=== PATIENT | male | born 1930 | race Caucasian/White ===

== ENCOUNTER 2017-05-12 19:02 | Emergency (ER) | payer MEDICARE ==
[~2017-05-12] VITALS: Ht 170.2 cm; Wt 65.8 kg
[~2017-05-12 19:02] MED LIST: ACET325T9 PO; ASPI-630 PO; ATOR10TA PO; BUPR100T6 PO; CALC-98 PO; DONE10TA61 PO; DOXY25TA42 PO; FIBER CAPSULE; MULT-658 PO; OMEG1CAP38 PO; SERT100T8 PO
--- NOTE | 2017-05-12 19:29 | PHYS DOC ---
Past History Past Medical History: Dementia Past Surgical History: Tonsillectomy Smoking: Quit Greater Than 1 Year Alcohol Use: None Drug Use: None Adult General Chief Complaint Chief Complaint: WEAKNESS/GENERALIZED HPI HPI Patient is a 86 year old male who presents to the emergency department for evaluation of generalized weakness and shaking. Symptoms started approximately 1 hour prior to arrival. The patient has history of dementia and is unable to provide coherent history. Patient denies any complaints at this time. Patient's family noted that the patient started having what appeared to be shaking chills and appeared very weak. Symptoms appeared to start suddenly today. No reports of previous illness. Patient has not been having any cough or family. Family concerned the patient may be showing symptoms concerning for a possible infection. Review of Systems Review of Systems Caveat: Patient poor historian with history of dementia, denies any complaints Constitutional: Denies fever or chills [] Eyes: Denies change in visual acuity, redness, or eye pain [] HENT: Denies nasal congestion or sore throat [] Respiratory: Denies cough or shortness of breath [] Cardiovascular: Denies chest pain or edema [] GI: Denies abdominal pain, nausea, vomiting, bloody stools or diarrhea [] : Denies dysuria or hematuria [] Musculoskeletal: Denies back pain or joint pain [] Integument: Denies rash or skin lesions [] Neurologic: Denies headache, focal weakness or sensory changes [] Allergies Allergies Allergies Coded Allergies Type Severity Reaction Last Updated Verified Penicillins Allergy Intermediate extremity swelling 04/25/14 Yes Physical Exam Physical Exam Constitutional: Alert, febrile, no acute distress. [] HENT: Normocephalic, atraumatic, bilateral external ears normal, oropharynx dry , no oral exudates, nose normal. [] Eyes: PERRLA, EOMI, conjunctiva normal, no discharge. [] Neck: Normal range of motion, no tenderness, supple, no stridor. [] Cardiovascular: Tachycardia, regular rhythm, no murmur [] Lungs & Thorax: Mildly restricted air movement bilaterally, no audible rales or wheezes [] Abdomen: Bowel sounds normal, soft, no tenderness, no masses, no pulsatile masses. [] Skin: Warm, dry, no erythema, no rash. [] Back: No tenderness, no CVA tenderness. [] Extremities: No tenderness, no cyanosis, no clubbing, ROM intact, no edema. [] Neurologic: Alert, oriented to person only, normal motor function, normal sensory function, no focal deficits noted. [] Current Patient Data Vital Signs Vital Signs Date Time Temp Pulse Resp B/P (MAP) Pulse Ox O2 Delivery O2 Flow Rate FiO2 05/12/17 20:39 82 20 156/85 (108) 94 Room Air 05/12/17 19:03 101.0 Lab Results Laboratory Tests Test 05/12/17 19:18 Glucose (Fingerstick) 107 mg/dL (70-99) H EKG EKG Interpreted by me: Heart rate 88, sinus rhythm, leftward axis, no acute ST/T- wave abnormalities present [] Radiology/Procedures Radiology/Procedures One view AP chest x-ray interpreted by me: No infiltrate, no effusions, normal cardiac silhouette [] Course & Med Decision Making Course & Med Decision Making Pertinent Labs and Imaging studies reviewed. (See chart for details) Patient was found have evidence of urinary tract infection on patient's workup. Patient started on IV Rocephin in the emergency department. Spoke with the patient's family regarding inpatient versus outpatient treatment. The family states that they would like to take the patient home for outpatient treatment at this time. The patient's lactic acid level is normal and vital signs are stable. I do not feel it unreasonable to try outpatient treatment for this patient. Patient will continue on Vantin for outpatient treatment. I did recommend that the patient follow-up in one to 2 days with his primary doctor for reevaluation and return to the emergency department for any worsening symptoms. Patient's family voiced understanding and in agreement with treatment plan. Dragon Disclaimer Dragon Disclaimer This chart was dictated in whole or in part using Voice Recognition software in a busy, high-work load, and often noisy Emergency Department environment. It may contain unintended and wholly unrecognized errors or omissions. Departure Departure: Impression: Primary Impression: Urinary tract infection Additional Impression: Dementia Disposition: 01 HOME, SELF-CARE Condition: IMPROVED Referrals: DEDE ESPINOZA APRN (PCP) Patient Instructions: Urinary Tract Infection Additional Instructions: Follow-up with your primary doctor in 1-2 days for reevaluation. Return to the emergency department for any worsening symptoms. Scripts Cefpodoxime Proxetil (CEFPODOXIME PROXETIL) 200 Mg Tablet 1 TAB PO BID, #14 TAB Prov: RASHAWN MARROQUIN MD 05/12/17 Problem Qualifiers Primary Impression: Urinary tract infection Urinary tract infection type: site unspecified Hematuria presence: without hematuria Qualified Codes: N39.0 - Urinary tract infection, site not specified Additional Impression: Dementia Dementia type: Alzheimer's disease Alzheimer's disease onset: unspecified onset Dementia behavioral disturbance: without behavioral disturbance Qualified Codes: G30.9 - Alzheimer's disease, unspecified; F02.80 - Dementia in other diseases classified elsewhere without behavioral disturbance RASHAWN MARROQUIN MD May 12, 2017 19:29
[2017-05-12] MEDS ORDERED: IV NORMAL SALINE 1,000ML 1,000 ML IV SCH (19:30)
[2017-05-12 19:42] LABS: BASO # 0.1 x10^3/uL (0.0-0.2); BASO % 0 % (0-3); EOS # 0.2 x10^3/uL (0.0-0.7); EOS % 2 % (0-3); HEMATOCRIT 40.6 % (39.0-53.0); HEMOGLOBIN 13.7 g/dL (13.0-17.5); LYMPH % 7 % (24-48); MEAN CORPUSCULAR HEMOGLOBIN 31 pg (25-35); MEAN CORPUSCULAR HGB CONC 34 g/dL (31-37); MEAN CORPUSCULAR VOLUME 92 fL (79-100); MONO # 0.8 x10^3/uL (0.0-1.1); MONO % 5 % (0-9); NEUT % 86 % (31-73); PLATELET COUNT 187 x10^3/uL (140-400); RED BLOOD COUNT 4.41 x10^6/uL (4.30-5.70); RED CELL DISTRIBUTION WIDTH 13.2 % (11.5-14.5); WHITE BLOOD COUNT 14.1 x10^3/uL (4.0-11.0)
[2017-05-12 19:49] LABS: ALBUMIN 3.7 g/dL (3.4-5.0); ALBUMIN/GLOBULIN RATIO 1.2 (1.0-1.7); CALCIUM 8.9 mg/dL (8.5-10.1); CREATININE 1.1 mg/dL (0.7-1.3); GFR 63.8; POTASSIUM 3.9 mmol/L (3.5-5.1); TOTAL BILIRUBIN 0.5 mg/dL (0.2-1.0); TOTAL PROTEIN 6.9 g/dL (6.4-8.2)
[2017-05-12] MEDS ORDERED: TAMS0.4C97 PO (19:55)
[2017-05-12] MEDS ORDERED: NAPR-677 PO (19:55)
[2017-05-12] MEDS ORDERED: MELA3TAB2 PO (19:55)
[2017-05-12] MEDS ORDERED: SERT100T PO (19:55)
[2017-05-12] MEDS ORDERED: MEMA10TA PO (19:55)
[2017-05-12] MEDS ORDERED: DONE10TA61 PO (19:55)
[2017-05-12 20:24] LABS: BILIRUBIN,URINE NEG (NEG); CLARITY,URINE CLOUDY; COLOR,URINE YELLOW; GLUCOSE,URINE NEG (NEG); NITRITE,URINE POS (NEG); RBC,URINE OCC /HPF (0-2); UROBILINOGEN,URINE 1 mg/dL (0.2 mg/dL)
[2017-05-12 20:25] LABS: AMORPHOUS SEDIMENT,UR PRESENT /HPF; BACTERIA,URINE MOD /HPF (0-FEW); SQUAMOUS EPITHELIAL CELL,UR OCC /LPF
[2017-05-12] MEDS ORDERED: cefTRIAXone SODIUM 1 GM VIAL IV ONE (20:46)
[2017-05-12] MEDS ORDERED: IV NORMAL SALINE 50ML 50 ML ONE (20:46)
[2017-05-12] MEDS ORDERED: CEFP200T PO (21:13)
[2017-05-12 21:24] VITALS: BP 168/73
--- NOTE | 2017-05-12 23:23 | EKG ---
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
--- NOTE | 2017-05-13 09:28 | RAD ---
Chest Radiograph Date: 05/12/2017 20:04 Indication: Fevers, rigors Comparison: Chest radiograph 07/11/2012 Technique: Portable AP view of the chest provided Findings: Cardiomediastinal silhouette is normal in appearance. No pleural effusions, pneumothorax nor pulmonary vascular congestion. Lungs are clear. Visualized osseous structures are normal. Impression: No acute cardiopulmonary process.
== END 2017-05-12 21:24 | disposition home or self-care (01) ==
LOC: ER 19:02
DX: F03.90 Unspecified dementia, unspecified severity, without behavioral disturbance, psychotic disturbance, mood disturbance, and anxiety (principal); N39.0 Urinary tract infection, site not specified; Z88.0 Allergy status to penicillin; Z87.891 Personal history of nicotine dependence
CPT/HCPCS: 36415; 71010; 80053; 81001; 82947; 83605; 83690; 85027; 87040; 87086; 87205; 93005; 96361; 96365; 99285; J0696; J7030

== ENCOUNTER → 2018-06-10 | Outpatient (CLI) | payer MEDICARE ==
[~2018-06-10] MED LIST changes: +CEFP200T PO; +MELA3TAB2 PO; +MEMA10TA PO; +NAPR-677 PO; +SERT100T PO; +TAMS0.4C97 PO
--- NOTE | 2018-06-10 10:42 | RAD ---
Scrotal ultrasound, 06/10/2018: HISTORY: Testicular pain The right testicle measures 3.8 x 2.7 x 1.7 cm while the left testicle measures 2.8 x 2.6 x 1.7 cm. No testicular mass is seen. There is symmetric blood flow within the testicles. 2 small epididymal cysts are present on the left, one of which contains slightly echogenic material. The largest of these measures 6 mm. The right epididymis is unremarkable. There are small bilateral hydroceles. There is a small right varicocele. IMPRESSION: 1. No testicular abnormality is detected. 2. Small left epididymal cysts. 3. Small bilateral hydroceles. 4. Small right varicocele Electronically signed by: Dwaine Zarate MD (06/10/2018 10:38 AM) [facility]
== END | disposition home or self-care (01) ==
LOC: US 09:24
PROVIDERS: ATTEND Urology
DX: N43.2 Other hydrocele (principal); I86.1 Scrotal varices; N50.3 Cyst of epididymis; E78.00 Pure hypercholesterolemia, unspecified; Z87.891 Personal history of nicotine dependence
CPT/HCPCS: 76870

== ENCOUNTER → 2018-06-24 | Outpatient (CLI) | payer MEDICARE ==
--- NOTE | 2018-06-24 13:34 | RAD ---
EXAM: AP and frog-leg lateral views of the left hip DATE: 06/24/2018 12:00 AM INDICATION: pain in left hip COMPARISON: MRI 04/17/2011 FINDINGS/ IMPRESSION: No evidence of acute fracture or dislocation. Subtle cystic changes seen at the superior acetabulum. Otherwise joint spaces are preserved. Pelvic phleboliths are seen. Electronically signed by: Reggie Elizondo MD (06/24/2018 1:31 PM) [id number]
--- NOTE | 2018-06-24 13:36 | RAD ---
Exam:Right ribs Date: 06/24/2018 12:00 AM Comparison: No prior Indication: Pain upper right ribs, chest Findings/ Impression: AP, Oblique and Spot images of the right ribs are negative for acute displaced rib fracture. Negative focal pleural elevation. Symmetrical intercostal spacing. It is of note that an acute non-displaced rib fracture can be inapparent on initial post-trauma imaging. Electronically signed by: Reggie Elizondo MD (06/24/2018 1:33 PM) [id number]
== END | disposition home or self-care (01) ==
LOC: PMG 10:55
PROVIDERS: ATTEND Physician Assistant
DX: I87.8 Other specified disorders of veins (principal); E78.00 Pure hypercholesterolemia, unspecified; R07.81 Pleurodynia; Z87.891 Personal history of nicotine dependence; Z88.0 Allergy status to penicillin
CPT/HCPCS: 71101; 73502

== ENCOUNTER 2018-08-23 14:59 | Emergency (ER) | payer MEDICARE ==
[~2018-08-23] VITALS: Ht 172.7 cm; Wt 60.8 kg
--- NOTE | 2018-08-23 16:03 | RAD ---
Left ankle 3 views 08/23/2018. Reason for exam: Pain after a fall. There is an oblique fracture of the distal fibula extending down to the level of the tibiotalar joint. The lateral view shows questionable lucency at the distal dorsal tibia, but no other definite fracture is seen and there is no dislocation. IMPRESSION: Distal fibula fracture with questionable nondisplaced distal tibia fracture. Electronically signed by: Uli Huston Jr., MD (08/23/2018 3:59 PM) [facility] [place]
--- NOTE | 2018-08-23 16:24 | PHYS DOC ---
Past History Past Medical History: Dementia, Depression Past Surgical History: No Surgical History Smoking: Quit Greater Than 1 Year Alcohol Use: None Drug Use: None Adult General Chief Complaint Chief Complaint: ANKLE PROBLEM HPI HPI Patient is a 88 year old male who presents with obtaining of ankle injury. Patient states he missed a step and had a fall from a standing position and states his left ankle. Patient states the pain is 2/10 with bearing weight and 8 /10 with bearing weight. Denies other injuries and loss of consciousness. Review of Systems Review of Systems Constitutional: Denies fever or chills [] Eyes: Denies change in visual acuity, redness, or eye pain [] HENT: Denies nasal congestion or sore throat [] Respiratory: Denies cough or shortness of breath [] Cardiovascular: No additional information not addressed in HPI [] GI: Denies abdominal pain, nausea, vomiting, bloody stools or diarrhea [] : Denies dysuria or hematuria [] Musculoskeletal: Denies back pain, reports joint pain [] Integument: Denies rash or skin lesions [] Neurologic: Denies headache, focal weakness or sensory changes [] Endocrine: Denies polyuria or polydipsia [] All other systems were reviewed and found to be within normal limits, except as documented in this note. Current Medications Current Medications Current Medications Medications (Trade) Dose Ordered Sig/[facility] Start Time Stop Time Status Last Admin Dose Admin Acetaminophen/ Hydrocodone Bitart (Lortab 5/325) 1 tab 1X ONCE 08/23/18 16:45 08/23/18 16:46 Allergies Allergies Allergies Coded Allergies Type Severity Reaction Last Updated Verified Penicillins Allergy Intermediate extremity swelling 04/25/14 Yes Physical Exam Physical Exam Constitutional: Well developed, well nourished, mild distress, non-toxic appearance. [] HENT: Normocephalic, atraumatic. Eyes: PERRLA, EOMI, conjunctiva normal, no discharge. [] Neck: Normal range of motion, no tenderness, supple, no stridor. [] Cardiovascular:Heart rate regular rhythm, no murmur [] Lungs & Thorax: Bilateral breath sounds clear to auscultation [] Skin: Warm, dry, no erythema, no rash. [] Back: No tenderness, no CVA tenderness. [] Extremities: Left ankle with ecchymosis and edema and tenderness in lateral malleolus with painful range of motion without neurovascular deficit Neurologic: Alert and oriented X 3, normal motor function, normal sensory function, no focal deficits noted. [] Psychologic: Affect normal, judgement normal, mood normal. [] Current Patient Data Vital Signs Vital Signs Date Time Temp Pulse Resp B/P (MAP) Pulse Ox O2 Delivery O2 Flow Rate FiO2 08/23/18 15:23 98.0 52 20 95 Room Air EKG EKG [] Radiology/Procedures Radiology/[place] [address] IMAGING REPORT Signed PATIENT: BOBBY MICHAELS ACCOUNT: [id number] : 1930 LOCATION: ER AGE: 88 SEX: M EXAM STATUS: REG ER ORD. PHYSICIAN: BERNARDINO POSADA MD REASON: injury PROCEDURE: ANKLE LEFT 3V Left ankle 3 views 08/23/2018. Reason for exam: Pain after a fall. There is an oblique fracture of the distal fibula extending down to the level of the tibiotalar joint. The lateral view shows questionable lucency at the distal dorsal tibia, but no other definite fracture is seen and there is no dislocation. IMPRESSION: Distal fibula fracture with questionable nondisplaced distal tibia fracture. Electronically signed by: Guillermo Huston Jr., MD (08/23/2018 3:59 PM) [facility] [place] DICTATED AND SIGNED BY: GUILLERMO HUSTON Jr, MD DATE: 08/23/18 9984 CC: BERNARDINO POSADA MD; RAD[facility] HARRINGTON [facility] ~ [address] [address] IMAGING REPORT Signed PATIENT: BOBBY MICHAELS ACCOUNT: [id number] : 1930 LOCATION: ER AGE: 88 SEX: M EXAM STATUS: REG ER ORD. PHYSICIAN: BERNARDINO POSADA MD REASON: fall PROCEDURE: CT HEAD WO CONTRAST CT head without contrast HISTORY: Fall, headaches, dizziness. COMPARISON: CT head April 06, 2016. TECHNIQUE: 5 mm axial noncontrast imaging skull base to vertex was acquired. FINDINGS: Generalized brain atrophy. Ventriculomegaly is stable may be from brain atrophy or normal pressure hydrocephalus. No obstructive hydrocephalus. No intracranial hemorrhage. No mass. No infarct. Deep frontal lobe white matter hypoattenuation is stable likely sequela of chronic microvascular ischemic disease. Orbits, mastoids, paranasal sinuses and bones are unremarkable. IMPRESSION: No acute process. See discussion above. Exposure: One or more of the following individualized dose reduction techniques were utilized for this examination: 1. Automated exposure control 2. Adjustment of the mA and/or kV according to patient size 3. Use of iterative reconstruction technique Electronically signed by: Jesus Urbina MD (08/23/2018 5:08 PM) [facility] DICTATED AND SIGNED BY: JESUS URBINA MD DATE: 08/23/181702 CC: BERNARDINO POSADA MD; RAD[facility] HARRINGTON [facility] ~ [address] [address] IMAGING REPORT Signed PATIENT: BOBBY MICHAELS ACCOUNT: [id number] : 1930 LOCATION: ER AGE: 88 SEX: M EXAM STATUS: REG ER ORD. PHYSICIAN: BERNARDINO POSADA MD REASON: questionable distal tibia fracture PROCEDURE: CT LOWER EXTREMITY WO LEFT CT left tibia fibula without contrast HISTORY: Fall, left leg and ankle pain. TECHNIQUE: Helical multiplanar reconstructed noncontrast CT imaging of the left tibia and fibula were acquired with 3-D volume reconstructions for pretreatment planning. FINDINGS: Coronal and sagittal reconstructions of both the right and left legs were submitted however the technologist only submitted axial images of the left leg. Numerous phone calls to the electrical engineering technologist were not returned by the technologist, in order to acquire axial images of the right leg. The emergency department was notified of this and to notified the electrical engineering technologist of the need to contact the radiologist, with no phone call ever returned, resulting in delay of reporting the exam. 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 The left leg demonstrates acute traumatic spiral fracture of the distal fibula metaphysis and there is a small chip fracture component at the anterior cortex near the general region of the anterior inferior tibiofibular ligament attachment. The tibia is intact. No talus osteochondral lesion. Arterial vascular calcifications. Lateral ankle soft tissue edema. IMPRESSION: Acute traumatic fracture of the distal fibula as described above. Exposure: One or more of the following individualized dose reduction techniques were utilized for this examination: 1. Automated exposure control 2. Adjustment of the mA and/or kV according to patient size 3. Use of iterative reconstruction technique Electronically signed by: Jesus Urbina MD (08/23/2018 5:34 PM) [facility] DICTATED AND SIGNED BY: JESUS URBINA MD DATE: 08/23/181710 CC: BERNARDINO POSADA MD; RAD[facility] HARRINGTON ~ Course & Med Decision Making Course & Med Decision Making Pertinent Imaging studies reviewed. (See chart for details) Evaluation of patient in ER showed 88-year-old male patient with accidental fall and injury to left lateral malleolus with distal fibular fracture without fracture of tibia and CT of lower extremity. Patient had posterior splint placed by [employer] with good neurovascular evaluation. Patient instructed to follow -up with on-call orthopedic physician. Ruthy Disclaimer Dragon Disclaimer This electronic medical record was generated, in whole or in part, using a voice recognition dictation system. 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 Vazquez, call [phone] to make an appointment in 2 or 3 days Use walker Follow-up with your primary care physician in 3-5 days Return to ER if not getting better Scripts [walker] No Conflict Check #1 Prov: BERNARDINO POSADA MD 08/23/18 Hydrocodone Bit/Acetaminophen (NORCO 5-325 TABLET) 1 Each Tablet 1 TAB PO PRN Q6HRS PRN for PAIN, #20 TAB 0 Refills Prov: BERNARDINO POSADA MD 08/23/18 Problem Qualifiers BERNARDINO POSADA MD Aug 23, 2018 16:24
[2018-08-23] MEDS ORDERED: HYDROcodone/APAP 5/325MG 1 TAB TABLET PO ONE (16:45)
--- NOTE | 2018-08-23 17:11 | RAD ---
CT head without contrast HISTORY: Fall, headaches, dizziness. COMPARISON: CT head April 06, 2016. TECHNIQUE: 5 mm axial noncontrast imaging skull base to vertex was acquired. FINDINGS: Generalized brain atrophy. Ventriculomegaly is stable may be from brain atrophy or normal pressure hydrocephalus. No obstructive hydrocephalus. No intracranial hemorrhage. No mass. No infarct. Deep frontal lobe white matter hypoattenuation is stable likely sequela of chronic microvascular ischemic disease. Orbits, mastoids, paranasal sinuses and bones are unremarkable. IMPRESSION: No acute process. See discussion above. Exposure: One or more of the following individualized dose reduction techniques were utilized for this examination: 1. Automated exposure control 2. Adjustment of the mA and/or kV according to patient size 3. Use of iterative reconstruction technique Electronically signed by: Gen Correa MD (08/23/2018 5:08 PM) [facility]
--- NOTE | 2018-08-23 17:37 | RAD ---
CT left tibia fibula without contrast HISTORY: Fall, left leg and ankle pain. TECHNIQUE: Helical multiplanar reconstructed noncontrast CT imaging of the left tibia and fibula were acquired with 3-D volume reconstructions for pretreatment planning. FINDINGS: Coronal and sagittal reconstructions of both the right and left legs were submitted however the technologist only submitted axial images of the left leg. Numerous phone calls to the cytotechnologist/histotechnologist were not returned by the technologist, in order to acquire axial images of the right leg. The emergency department was notified of this and to notified the cytotechnologist/histotechnologist of the need to contact the radiologist, with no phone call ever returned, resulting in delay of reporting the exam. 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 The left leg demonstrates acute traumatic spiral fracture of the distal fibula metaphysis and there is a small chip fracture component at the anterior cortex near the general region of the anterior inferior tibiofibular ligament attachment. The tibia is intact. No talus osteochondral lesion. Arterial vascular calcifications. Lateral ankle soft tissue edema. IMPRESSION: Acute traumatic fracture of the distal fibula as described above. Exposure: One or more of the following individualized dose reduction techniques were utilized for this examination: 1. Automated exposure control 2. Adjustment of the mA and/or kV according to patient size 3. Use of iterative reconstruction technique Electronically signed by: Gen Correa MD (08/23/2018 5:34 PM) [facility]
[2018-08-23] MEDS ORDERED: HYDR-971 PO (17:53)
[2018-08-23] MEDS ORDERED: walker (17:53)
[2018-08-23 18:00] VITALS: BP 134/75
== END 2018-08-23 18:15 | disposition home or self-care (01) ==
LOC: ER 14:59
DX: S82.832A Other fracture of upper and lower end of left fibula, initial encounter for closed fracture (principal); Z87.891 Personal history of nicotine dependence; Z88.0 Allergy status to penicillin; W10.8XXA Fall (on) (from) other stairs and steps, initial encounter; Y93.89 Activity, other specified; Y92.098 Other place in other non-institutional residence as the place of occurrence of the external cause; Y99.8 Other external cause status
CPT/HCPCS: 29515; 70450; 73610; 73700; 99284

== ENCOUNTER 2019-01-14 11:39 | Inpatient (IN) | payer MEDICARE ==
[~2019-01-14] VITALS: Ht 160 cm; Wt 59.6 kg
[~2019-01-14 11:39] MED LIST changes: +HYDR-3165 PO; +walker
--- NOTE | 2019-01-14 12:17 | RAD ---
RIBS LEFT AND AP SUPINE CHEST Clinical Indication: FALL TODAY, LEFT RIB PAIN Comparison: Right rib series June 24, 2018. AP chest, May 12, 2017. Findings: The frontal chest radiograph position is supine which limits sensitivity for detection of pneumothorax. Probably ectatic thoracic aorta. Cardiac size upper limits of normal. No focal airspace disease. No layering pleural effusion. There are acute traumatic mildly displaced fractures of the left lateral eighth, ninth, and 10th ribs. There appears to be old fracture of the left lateral seventh rib. 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 IMPRESSION: Acute traumatic mildly displaced fractures of the left lateral eighth, ninth, and 10th ribs. Electronically signed by: Dereck Florentino MD (01/14/2019 12:14 PM) [id number]
--- NOTE | 2019-01-14 12:28 | PHYS DOC ---
Past History Past Medical History: Dementia, Depression Past Surgical History: No Surgical History Smoking: Quit Greater Than 1 Year Alcohol Use: None Drug Use: None Adult General Chief Complaint Chief Complaint: RIB PAIN HPI HPI 88-year-old male with a history of dementia presents with left-sided rib pain after a fall last evening. states that he tripped and fell hitting the left side of his chest against a TV cabinet. He did not hit his head or lose consciousness. He did fall to the ground and needed his 16-year-old grandson to pick him up and put him in the recliner. The pain intensified throughout the evening and this morning the patient was unable to do anything without severe pain. Currently it hurts him to take a breath or move in any way.[] Review of Systems Review of Systems Constitutional: Denies fever or chills [] Eyes: Denies change in visual acuity, redness, or eye pain [] HENT: Denies nasal congestion or sore throat [] Respiratory: Reports shortness of breath secondary to pain[] Cardiovascular: No additional information not addressed in HPI [] GI: Denies abdominal pain, nausea, vomiting, bloody stools or diarrhea [] : Denies dysuria or hematuria [] Musculoskeletal: Rib pain on the left[] Integument: Denies rash or skin lesions [] Neurologic: Denies headache, focal weakness or sensory changes [] Endocrine: Denies polyuria or polydipsia [] All other systems were reviewed and found to be within normal limits, except as documented in this note. Current Medications Current Medications Current Medications Medications (Trade) Dose Ordered Sig/[facility] Start Time Stop Time Status Last Admin Dose Admin Fentanyl Citrate (Fentanyl 2ml Vial) 50 mcg 1X ONCE 01/14/19 12:15 01/14/19 12:16 DC 01/14/19 12:18 50 MCG Allergies Allergies Allergies Coded Allergies Type Severity Reaction Last Updated Verified Penicillins Allergy Intermediate extremity swelling 04/25/14 Yes Physical Exam Physical Exam Constitutional: Frail, elderly, disheveled, malodorous in moderate distress secondary to left rib pain. [] HENT: Normocephalic, atraumatic, bilateral external ears normal, oropharynx moist, no oral exudates, nose normal. [] Eyes: PERRLA, EOMI, conjunctiva normal, no discharge. [] Neck: Normal range of motion, no tenderness, supple, no stridor. [] Cardiovascular:Heart rate regular rhythm, no murmur [] Lungs & Thorax: Left chest is tender to palp with crepitus no subcutaneous air[] Abdomen: Bowel sounds normal, soft, no tenderness, no masses, no pulsatile masses. [] Skin: Warm, dry, no erythema, no rash. [] Back: No tenderness, no CVA tenderness. [] Extremities: No tenderness, no cyanosis, no clubbing, ROM intact, no edema. [] Neurologic: Alert but disoriented, normal motor function, normal sensory function, no focal deficits noted. [] Psychologic: Anxious. [] Current Patient Data Vital Signs Vital Signs Date Time Temp Pulse Resp B/P (MAP) Pulse Ox O2 Delivery O2 Flow Rate FiO2 01/14/19 12:18 16 91 01/14/19 11:45 97.9 61 Room Air EKG EKG [] Radiology/Procedures Radiology/Procedures [] Impressions: PROCEDURE: RIBS LEFT AND PA CHEST RIBS LEFT AND AP SUPINE CHEST Clinical Indication: FALL TODAY, LEFT RIB PAIN Comparison: Right rib series June 24, 2018. AP chest, May 12, 2017. Findings: The frontal chest radiograph position is supine which limits sensitivity for detection of pneumothorax. Probably ectatic thoracic aorta. Cardiac size upper limits of normal. No focal airspace disease. No layering pleural effusion. There are acute traumatic mildly displaced fractures of the left lateral eighth, ninth, and 10th ribs. There appears to be old fracture of the left lateral seventh rib. 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 IMPRESSION: Acute traumatic mildly displaced fractures of the left lateral eighth, ninth, and 10th ribs. Course & Med Decision Making Course & Med Decision Making Pertinent Labs and Imaging studies reviewed. (See chart for details) [ED course: Evaluation reveals an 88-year-old frail man with multiple recent falls including one last night which caused multiple rib fractures. He is required IV narcotics to alleviate his symptoms. I spoke with our hospitalist who agreed to accept the patient to help with intractable pain. Patient will be admitted here at [facility].] Dragon Disclaimer Dragon Disclaimer This electronic medical record was generated, in whole or in part, using a voice recognition dictation system. Departure Departure: Impression: Primary Impression: Multiple rib fractures Disposition: ADMITTED INPATIENT Admitting Physician: Jorden Monroy Condition: GUARDED Referrals: RADHAMES HARRINGTON (PCP) Problem Qualifiers Primary Impression: Multiple rib fractures Encounter type: initial encounter Fracture type: closed Laterality: left Qualified Codes: S22.42XA - Multiple fractures of ribs, left side, initial encounter for closed fracture GALE LOTT DO Jan 14, 2019 12:28
[2019-01-14 12:30] LABS: BASO # 0.1 x10^3/uL (0.0-0.2); BASO % 1 % (0-3); EOS # 0.1 x10^3/uL (0.0-0.7); EOS % 1 % (0-3); HEMATOCRIT 43.5 % (39.0-53.0); HEMOGLOBIN 14.4 g/dL (13.0-17.5); LYMPH # 1.1 x10^3/uL (1.0-4.8); LYMPH % 11 % (24-48); MEAN CORPUSCULAR HEMOGLOBIN 32 pg (25-35); MEAN CORPUSCULAR HGB CONC 33 g/dL (31-37); MEAN CORPUSCULAR VOLUME 96 fL (79-100); MONO # 0.8 x10^3/uL (0.0-1.1); MONO % 8 % (0-9); NEUT # 8.2 x10^3uL (1.8-7.7); NEUT % 80 % (31-73); PLATELET COUNT 214 x10^3/uL (140-400); RED BLOOD COUNT 4.55 x10^6/uL (4.30-5.70); RED CELL DISTRIBUTION WIDTH 12.9 % (11.5-14.5); WHITE BLOOD COUNT 10.2 x10^3/uL (4.0-11.0)
[2019-01-14 12:45] LABS: ALBUMIN 3.7 g/dL (3.4-5.0); ALBUMIN/GLOBULIN RATIO 1.4 (1.0-1.7); CALCIUM 9.1 mg/dL (8.5-10.1); GFR 70.8; POTASSIUM 3.8 mmol/L (3.5-5.1); TOTAL BILIRUBIN 0.6 mg/dL (0.2-1.0); TOTAL PROTEIN 6.3 g/dL (6.4-8.2)
[2019-01-14] MEDS ORDERED: ACETAMINOPHEN 325 MG TABLET PO PRN (12:45)
[2019-01-14] MEDS ORDERED: ONDANSETRON PF 4 MG/2 ML VIAL. IV PRN (12:45)
[2019-01-14 14:03] VITALS: BP 166/96
[2019-01-14] MEDS ORDERED: DEXT350P PO (17:46)
[2019-01-14] MEDS ORDERED: DONE10TA61 PO (17:46)
--- NOTE | 2019-01-14 17:51 | HP ---
ADMIT DATE: 01/14/2019 HISTORY OF PRESENT ILLNESS: The patient is an 88-year-old male patient who lives at home with his and his grandson who has dementia and has been falling frequently. Recently he has 3 falls over the last week. His stated that he tripped and fell hitting the left side of his chest against the TV cabinet. He did not hit his head or lose consciousness. He did fall to the ground and needed his 16-year-old grandson to pick him up and put him in the recliner. The pain intensified throughout the evening and this morning, the patient was unable to do anything without severe pain. He apparently fell off twice last week. One was in the bathtub. The patient complains of pain any time he breaths or moves in any way and he was extensively investigated and has had a chest x-ray and rib views showed acute traumatic mildly displaced fracture of the left lateral 8th, 9th and 10th ribs and was admitted for pain management. PAST MEDICAL HISTORY: Apparently unremarkable. He is known to have dementia, hyperlipidemia, benign prostatic hypertrophy, depression and anxiety as well as insomnia. PAST SURGICAL HISTORY: Significant for bilateral cataract extraction as well as hemorrhoidectomy. ALLERGIES: HE IS ALLERGIC TO PENICILLIN. MEDICATIONS: He is currently on following medications: He is on doxylamine succinate 25 mg tablet once a day at bedtime for insomnia. He is on Flomax 0.4 mg at bedtime, atorvastatin calcium 10 mg at bedtime, omega-3 fatty acid 1000 mg once a day, aspirin 81 mg once a day, naproxen 550 mg daily, hydrocodone/APAP 5/325 one tablet every 6 hours, Tylenol 650 mg every 4 hours, Wellbutrin 150 mg daily, sertraline 225 mg daily, Zoloft 100 mg daily, Namenda 10 mg once a day, calcium carbonate with vitamin D one tablet once a day, multivitamin for Centrum Silver 1 tablet once a day, melatonin 3 mg at bedtime. FAMILY HISTORY: Unremarkable. SOCIAL HISTORY: He is , lives with his . He does not smoke, drink alcohol or use any recreational drugs. REVIEW OF SYSTEMS: As per history of present illness. PHYSICAL EXAMINATION: GENERAL: When I examined him this afternoon, he was resting slightly propped up in bed, in no apparent respiratory distress. He does complain of severe left-sided pain whenever he moves or attempts to talk or take a deep breath. There is no pallor, jaundice, cyanosis, or thyromegaly. No jugular venous distension. No lower limb edema. VITAL SIGNS: His heart rate was 58, blood pressure was 166/96, temperature was 98, respiratory rate was 18 and oxygen saturation was 96% on 2 liters of oxygen. HEAD, EYES, EARS, NOSE AND THROAT: Showed normocephalic, atraumatic. NECK: Supple. HEART: Showed normal first and second heart sounds with no gallop, rub or murmur. CHEST: Shows central trachea, equally reduced expansion, reduced air entry, vesicular sounds. No crepitation or rhonchi. Has marked tenderness on the left side of the chest. ABDOMEN: Slightly distended, soft, nontender. No guarding or rigidity. No organomegaly. All hernial orifices are intact. Bowel sounds normal. NEUROLOGIC: The patient is awake, alert, clearly confused, disoriented; however, he has no lateralizing sign. All his cranial nerves are intact. EXTREMITIES: He moves extremities without difficulty. According to his , he does not know how to use the walker or a cane and has had multiple falls recently. He normally follows with Dr. Carter and does not carry diagnosis of any Parkinson disease and has no documented cerebrovascular accident before. LABORATORY DATA: In the Emergency Room, he had lab work done, which showed a white cell count of 10,200, hemoglobin 14.4, hematocrit 43.5, MCV 96, and platelet count 214,000. His chemistry showed a serum sodium 140, potassium 3.8, chloride 105, bicarbonate 27, anion gap of 8, BUN 17, creatinine 1, estimated GFR was 71 mL per minute, his glucose 104, calcium was 9.1. Total bilirubin, AST, ALT, alkaline phosphatase were normal. His total protein was 6.3, albumin 3.7. While in the Emergency Room, he has had x-ray of rib view with a chest x-ray, which showed that the patient frontal chest radiograph position in supine, which limits sensitivity for detection of pneumothorax, probably ectatic thoracic aorta. Cardiac size upper limit of normal. No focal airspace disease, no layering pleural effusion. There are acute traumatic mildly displaced fracture of the left lateral 8th, 9th and 10th ribs. There appears to be old fractures of the left lateral 7th rib. 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 ASSESSMENT AND PLAN: The patient was admitted. We will resume all his medication. We will consult Dr. Carter. We will obviously work to control his pain. I will add Lidoderm patches and schedule his pain medication and consult physical and occupational therapy and his wanted him to be admitted to [facility] for rehabilitation before he can come home. ALTAGRACIA DUNN MD DR: CHUCK/cecile JOB#: [id number] / [id number]
[2019-01-14] MEDS: oxyCODONE IR 5 MG TABLET PO PRN (17:56)
--- NOTE | 2019-01-14 19:01 | RAD ---
CT HEAD WO CONTRAST Clinical indications: Recurrent falls, confusion COMPARISON: August 23, 2018. Technique: Noncontrast axial cross sectional scanning of the head was performed. PQRS compliance Statement One or more of the following individualized dose reduction techniques were utilized for this study: 1. Automated exposure control 2. Adjustment of the mA and/or kV according to patient size 3. Use of iterative reconstruction technique Findings: No acute intracranial hemorrhage or midline shift or mass-effect or extra-axial fluid collection is seen. Ventriculomegaly is seen which is stable. Generalized cerebral atrophy is evident. There is mild bilateral periventricular white matter hypodensity consistent with chronic small vessel ischemic disease which is stable. No skull fracture or pneumocephalus is seen. No opacification of the mastoid sinuses or the paranasal sinuses is seen. The maxillary sinuses are not completely seen in this study. Impression: No new intracranial abnormality is seen. Electronically signed by: Sylvester Reynolds MD (01/14/2019 6:58 PM) [facility]
[2019-01-14 19:36] VITALS: BP 186/92
[2019-01-14] MEDS: DONEPEZIL HCL 10 MG TABLET PO SCH (20:45)
[2019-01-14] MEDS: TAMSULOSIN 0.4 MG CAP.ER.24H. PO SCH (20:45)
[2019-01-14] MEDS ORDERED: ATORVASTATIN CALCIUM 10 MG TABLET. PO SCH (21:00)
[2019-01-14 22:43] VITALS: BP 147/90
[2019-01-15] MEDS: oxyCODONE IR 5 MG TABLET PO PRN ×4 (04:30→20:27)
[2019-01-15 05:14] VITALS: BP 166/84
[2019-01-15 06:58] LABS: HEMATOCRIT 41.1 % (39.0-53.0); HEMOGLOBIN 13.9 g/dL (13.0-17.5); RED BLOOD COUNT 4.35 x10^6/uL (4.30-5.70); WHITE BLOOD COUNT 10.4 x10^3/uL (4.0-11.0)
[2019-01-15 07:16] LABS: ALBUMIN 3.3 g/dL (3.4-5.0); ALBUMIN/GLOBULIN RATIO 1.2 (1.0-1.7); CALCIUM 8.8 mg/dL (8.5-10.1); GFR 70.8; POTASSIUM 3.9 mmol/L (3.5-5.1); TOTAL BILIRUBIN 0.7 mg/dL (0.2-1.0)
[2019-01-15] MEDS ORDERED: ASPIRIN 81 MG TAB.CHEW PO SCH (08:00)
[2019-01-15] MEDS: PSYLLIUM SEED (WITH SUGAR) PACKET. PO SCH (08:54)
[2019-01-15] MEDS: OMEGA-3 FATTY ACIDS/FISH OIL 1,000 MG CAPSULE. PO SCH (08:55)
[2019-01-15] MEDS: MULTIVITAMIN with MINERAL TABLET. PO SCH (08:55)
[2019-01-15] MEDS: LIDOCAINE (700MG/PATCH) PATCH. TD SCH (08:55)
[2019-01-15] MEDS: buPROPion XL 150 MG TAB.ER.24H PO SCH (08:56)
[2019-01-15] MEDS: CALCIUM CARB/VIT D3 500/200 TABLET PO SCH (08:56)
[2019-01-15] MEDS: SERTRALINE 100 MG TABLET. PO SCH (08:56)
[2019-01-15] MEDS: DONEPEZIL HCL 10 MG TABLET PO SCH ×2 (08:56→20:24)
[2019-01-15] MEDS: MEMANTINE 10 MG TABLET. PO SCH (08:56)
[2019-01-15] MEDS ORDERED: SERTRALINE 100 MG TABLET. PO SCH (09:00)
[2019-01-15] MEDS ORDERED: DOXYLAMINE SUCCINATE 25 MG TABLET PO SCH (09:00)
[2019-01-15 10:27] VITALS: BP 128/76
[2019-01-15 15:00] VITALS: BP 125/66
[2019-01-15 19:20] VITALS: BP 141/75
[2019-01-15] MEDS: MELATONIN 3 MG TABLET PO PRN (20:24)
[2019-01-15] MEDS: TAMSULOSIN 0.4 MG CAP.ER.24H. PO SCH (20:24)
--- NOTE | 2019-01-15 20:59 | CONS ---
DATE OF CONSULTATION: 01/15/2019 REQUESTING PHYSICIAN: Jorden Monroy MD REASON FOR CONSULTATION: Frequent falls and chest wall pain. HISTORY OF PRESENT ILLNESS: This is an 88-year-old right-handed male, who is known to me from outpatient visit with longstanding history of dementia that has been in his usual state of health until recently, he sustained two falls last week. According to his , he tripped and fell hitting his left side against the TV cabinet. Subsequently, he started experiencing severe left-sided chest wall pain, aggravated by taking deep breaths or moving his body or lifting his left upper extremity up. He was evaluated in the Emergency Room and chest x-ray was performed and revealed evidence of displaced fracture of the left lateral 8th, 9th and 10th ribs. The patient stated he did not hit his head or lost his consciousness. Currently, he denies headaches, visual disturbances, nausea, vomiting, dysarthria or dysphagia. Initial nonenhanced head CT scan revealed evidence of chronic small vessel ischemic changes, otherwise, unremarkable. No acute intracranial process. PAST MEDICAL HISTORY: Significant for dementia, depression, anxiety, benign prostate hypertrophy, hyperlipidemia and insomnia. PAST SURGICAL HISTORY: Significant for bilateral cataract extraction and hemorrhoidectomy. SOCIAL HISTORY: The patient lives with his at home. He denies smoking, alcohol drinking or illicit drug use. CURRENT HOME MEDICATIONS: Lipitor 10 mg at bedtime, fish oil, hydrocodone 5/325 mg q. 6 hours p.r.n., Tylenol, Wellbutrin 150 mg daily, sertraline 100 mg daily, donepezil 10 mg p.o. b.i.d., memantine 10 mg once daily, vitamin D once daily, multivitamins and melatonin 3 mg at bedtime. FAMILY HISTORY: Noncontributory. REVIEW OF SYSTEMS: A 10-point review of systems was performed as mentioned above in the history of present illness. PHYSICAL EXAMINATION: GENERAL: Well-developed male, in no acute distress. He weighs 153 pounds. VITAL SIGNS: Blood pressure is 166/84, respiratory rate 18, pulse is 65 and regular, temperature is 98.5, oxygen saturation is 93% on 2 liters by nasal cannula. HEENT: Normocephalic, atraumatic, otherwise, unremarkable. NECK: Supple. Negative for carotid bruit, lymphadenopathy or thyromegaly. LUNGS: Clear to A and P. CARDIOVASCULAR: Regular rate and rhythm, normal S1, S2. ABDOMEN: Soft. Bowel sounds positive. EXTREMITIES: Negative for cyanosis, clubbing or pitting edema. NEUROLOGIC: MENTAL STATUS: The patient is alert and oriented x 2. Speech is fluent. There is no language dysfunctions. Memory, judgment and abstract thinking are poor. The patient denies hallucination or delusion. The patient is able to name the president of [facility]. CRANIAL NERVES: Visual nuñez are full. The pupils are reactive to light and accommodation. The extraocular movements are intact. There is no nystagmus. There is no facial motor or sensory deficit. Hearing appears to be intact. The palate is elevated symmetrically. Sternocleidomastoid muscles are powerful bilaterally. The patient shrugs his shoulder symmetrically, protrudes his tongue in the midline without fasciculation or atrophy. Motor Examination: No focal muscle bulk was seen. The tone is normal. The strength is 4/5 throughout. Sensory examination revealed normal pinprick, light touch, vibratory and position senses. Deep tendon reflexes were symmetric and hypoactive with absent Achilles responses. Gait not tested. DIAGNOSTIC DATA: Initial non-enhanced head CAT scan revealed no evidence of acute intracranial process, but showed chronic small vessel ischemic changes. Chest x-ray revealed acute traumatic mildly displaced fracture of the lateral 8th, 9th and 10th ribs. LABORATORY DATA: CBC revealed white blood cells of 10,400, hemoglobin 13.9, hematocrit 41.1, platelet count 224,000. Chemistry revealed sodium of 140, potassium 3.9, chloride 105, CO2 of 29, BUN 18, creatinine 1, glucose 95. Calcium is 8.8. Troponin level is normal. IMPRESSION: 1. Frequent falls with current fracture of multiple 8th, 9th and 10th rib fractures on the left side secondary to fall. 2. Dementia, depression and anxiety. 3. Multiple medical problems include hypertension, hyperlipidemia, insomnia and benign prostate hypertrophy. RECOMMENDATION: 1. Continue with current pain management. 2. Physical therapy and rehabilitation as tolerated. Otherwise, continue with current management initiated by Dr. Monroy. M Leland LLANOS MD DR: NAYLA/cecile JOB#: [id number] / [id number]
--- NOTE | 2019-01-15 21:18 | PN ---
DATE: 01/15/2019 SUBJECTIVE: The patient is sitting comfortably in his chair, continued to complain of severe pain with every movement. He did actually work with physical therapy and has had a bowel movement. PHYSICAL EXAMINATION: GENERAL: When I saw him this afternoon, he looked pale, cachectic, but no jaundice, cyanosis, or thyromegaly. No jugular venous distension. No limb edema. VITAL SIGNS: His heart rate was 81, blood pressure 128/76, temperature was 98.4, respiratory rate 22, and oxygen saturation was 93% on 2 liters of oxygen. HEAD, EYES, EARS, NOSE AND THROAT: Showed normocephalic, atraumatic. NECK: Supple. HEART: Showed normal first and second sounds. No gallop, rub or murmur. CHEST: Clear to auscultation. No crepitation or rhonchi. ABDOMEN: Scaphoid, soft, nontender. NEUROLOGIC: He is extremely demented, but without any lateralizing sign. All his cranial nerves are intact. He moves extremities without difficulty. His intake and output are incompletely recorded. LABORATORY DATA: Today showed a white cell count of 10,400, hemoglobin 13.9, hematocrit 41, MCV 95, and platelet count 224,000. Serum sodium was 140, potassium 3.9, chloride 105, bicarbonate 29, anion gap of 6, BUN 18, creatinine 1, estimated GFR was 71 mL per minute. His glucose was 95, calcium was 8.8. Total bilirubin, AST, ALT, alkaline phosphatase were normal. Total protein was 6, albumin was 3.3. ASSESSMENT: This is an 88-year-old male patient who was admitted with recurrent falls. He is apparently known to have unsteady gait and he is well known to Dr. Carter, the neurologist to follow him closely. Other medical problems include benign prostatic hypertrophy, hyperlipidemia, and dementia, depression, anxiety as well as insomnia. PLAN: To continue with pain management. Continue with obviously DVT prophylaxis. Continue with physical and occupational therapy. His wanted him to go to [place] for rehabilitation. We will contact our director social to see if that can be made. ALTAGRACIA DUNN MD DR: CHUCK/cecile JOB#: [id number] / [id number]
[2019-01-15 23:32] VITALS: BP 158/80
[2019-01-16] MEDS: oxyCODONE IR 5 MG TABLET PO PRN ×2 (01:25→20:03)
[2019-01-16 04:24] VITALS: BP 189/86
[2019-01-16] MEDS: SERTRALINE 100 MG TABLET. PO SCH (09:09)
[2019-01-16] MEDS: PSYLLIUM SEED (WITH SUGAR) PACKET. PO SCH (09:09)
[2019-01-16] MEDS: CALCIUM CARB/VIT D3 500/200 TABLET PO SCH (09:09)
[2019-01-16] MEDS: OMEGA-3 FATTY ACIDS/FISH OIL 1,000 MG CAPSULE. PO SCH (09:09)
[2019-01-16] MEDS: buPROPion XL 150 MG TAB.ER.24H PO SCH (09:09)
[2019-01-16] MEDS: DONEPEZIL HCL 10 MG TABLET PO SCH ×2 (09:09→20:03)
[2019-01-16] MEDS: LIDOCAINE (700MG/PATCH) PATCH. TD SCH (09:09)
[2019-01-16] MEDS: MEMANTINE 10 MG TABLET. PO SCH (09:09)
[2019-01-16] MEDS: MULTIVITAMIN with MINERAL TABLET. PO SCH (09:09)
[2019-01-16 11:18] VITALS: BP 119/73
[2019-01-16 14:44] VITALS: BP 153/69
[2019-01-16] MEDS: ENOXAPARIN 30 MG/0.3 ML SYRINGE. SQ SCH (17:41)
[2019-01-16 19:20] VITALS: BP 138/72
[2019-01-16] MEDS: TAMSULOSIN 0.4 MG CAP.ER.24H. PO SCH (20:03)
[2019-01-16] MEDS: MELATONIN 3 MG TABLET PO PRN (20:03)
--- NOTE | 2019-01-16 23:01 | PN ---
DATE: 01/16/2019 SUBJECTIVE: The patient is resting, slightly propped up in bed, in no apparent distress. He continued to complain of severe pain in his left side of the chest; however, he has been up and about, walked with the physical therapy, has eaten his breakfast and lunch without problem. Unfortunately, he did not qualify to go to [place] and we have to arrange to talk to his to see what other nursing facility. She will be happy to transfer him to. PHYSICAL EXAMINATION: GENERAL: When I examined him, he looked pale, cachectic, but no jaundice, cyanosis, or thyromegaly. No jugular venous distension. No limb edema. VITAL SIGNS: His heart rate was 59, blood pressure was 153/69, temperature was 97.9, respiratory rate was 20, and oxygen saturation was 96% on 2 liters of oxygen. HEAD, EYES, EARS, NOSE AND THROAT: Showed normocephalic, atraumatic. NECK: Supple. HEART: Showed normal first and second heart sounds. No gallop, rub or murmur. CHEST: Clear to auscultation. No crepitation or rhonchi. ABDOMEN: Slight distended, soft, nontender. NEUROLOGIC: He was grossly intact. His intake over the last 24 hours was 1560, output was 200. LABORATORY WORK: Showed a serum sodium 140, potassium 3.9, chloride 105, bicarbonate 29, anion gap of 6, BUN 18, creatinine 1, estimated GFR was 70 mL per minute. His glucose 95, calcium was 8.8. Total bilirubin, AST, ALT, alkaline phosphatase were normal. Total protein 6, albumin 3.3. White cell count was 10,400, hemoglobin 14, hematocrit 41, MCV 95, and platelet count 22,000. ASSESSMENT: Recurrent fall, admitted with a very unsteady gait. He sustained a fracture, mildly displaced fracture of the left lateral 8th, 9th and 10th ribs. He also appeared to have old fracture in the left lateral 7th rib and has also right convexity lumbar rotoscoliosis. Other medical problems include benign prostatic hypertrophy, hyperlipidemia, anxiety and depression, insomnia as well as dementia. PLAN: My plan is to continue obviously with pain management. Continue with DVT prophylaxis. Continue with physical and occupational therapy, as he was not a candidate to go to [facility]. We have to obviously worked on placement at another correction facility in this area including [facility] and/or [facility]. ALTAGRACIA DUNN MD DR: CHUCK/cecile JOB#: [id number] / [id number]
[2019-01-17] MEDS: oxyCODONE IR 5 MG TABLET PO PRN ×5 (00:30→23:02)
[2019-01-17 05:12] VITALS: BP 134/82
[2019-01-17 06:47] LABS: HEMATOCRIT 39.8 % (39.0-53.0); HEMOGLOBIN 13.5 g/dL (13.0-17.5); RED BLOOD COUNT 4.2 x10^6/uL (4.30-5.70); RED CELL DISTRIBUTION WIDTH 12.7 % (11.5-14.5); WHITE BLOOD COUNT 9.9 x10^3/uL (4.0-11.0)
[2019-01-17 06:52] LABS: CALCIUM 8.9 mg/dL (8.5-10.1); GFR 70.8; MAGNESIUM 1.8 mg/dL (1.8-2.4); POTASSIUM 3.7 mmol/L (3.5-5.1)
[2019-01-17] MEDS: LIDOCAINE (700MG/PATCH) PATCH. TD SCH (08:29)
[2019-01-17] MEDS: CALCIUM CARB/VIT D3 500/200 TABLET PO SCH (08:29)
[2019-01-17] MEDS: MULTIVITAMIN with MINERAL TABLET. PO SCH (08:29)
[2019-01-17] MEDS: PSYLLIUM SEED (WITH SUGAR) PACKET. PO SCH (08:29)
[2019-01-17] MEDS: MEMANTINE 10 MG TABLET. PO SCH (08:29)
[2019-01-17] MEDS: DONEPEZIL HCL 10 MG TABLET PO SCH ×2 (08:29→21:12)
[2019-01-17] MEDS: OMEGA-3 FATTY ACIDS/FISH OIL 1,000 MG CAPSULE. PO SCH (08:29)
[2019-01-17] MEDS: SERTRALINE 100 MG TABLET. PO SCH (08:29)
[2019-01-17] MEDS: buPROPion XL 150 MG TAB.ER.24H PO SCH (08:29)
[2019-01-17 10:38] VITALS: BP 108/65
--- NOTE | 2019-01-17 12:31 | PN ---
DATE: 01/16/2019 SUBJECTIVE: The patient continues to have mild pain over the left lateral chest wall. The pain is usually increased by taking deep breath or moving his left upper extremity, but he stated the pain is much less than has been before. OBJECTIVE: GENERAL: Well-developed male, not in acute distress. VITAL SIGNS: Blood pressure is 189/86, respiratory rate 22, pulse is 64 and regular, temperature 97.1, oxygen saturation 93% on 2 liters by nasal cannula. HEENT: Normocephalic, atraumatic, otherwise unremarkable. NECK: Supple. Negative for carotid bruit, lymphadenopathy or thyromegaly. LUNGS: Clear to A and P with diminished breath sounds. CARDIOVASCULAR: Regular rhythm, normal S1, S2. There is no S3, S4, or murmur. ABDOMEN: Soft. Bowel sounds positive. EXTREMITIES: Negative for cyanosis, clubbing or pitting edema. NEUROLOGICAL EXAM: Mental Status: The patient is alert, oriented to himself and place. Speech is of slow, no language dysfunction. Memory, judgment, and abstract thinking are fair. The patient denies hallucination or delusion. Cranial nerves are intact. No focal motor or cranial nerves are intact. Motor examination: The patient moves his upper and lower extremities equally, but the strength is 4/5 throughout. Sensory examination revealed normal pinprick and light touch senses. Deep tendon reflexes were symmetric and hypoactive with absent Achilles responses. Gait not tested. IMPRESSION: 1. Frequent falls with current fracture of multiple ribs on the left side may lead the 8th, 9th and 10th. 2. Dementia, depression and anxiety. 3. Multiple medical problems include hypertension, hyperlipidemia and benign prostatic hypertrophy. RECOMMENDATIONS: Continue with current management and physical therapy as tolerated. Otherwise, no further neurological investigation is required at this time. M Leland LLANOS MD DR: NAYLA/cecile JOB#: [id number] / [id number]
[2019-01-17 14:34] VITALS: BP 105/69
[2019-01-17] MEDS: ENOXAPARIN 30 MG/0.3 ML SYRINGE. SQ SCH (16:38)
--- NOTE | 2019-01-17 16:54 | PDOC ---
PROGRESS NOTES Diagnosis DIAGNOSIS multiple rib fractures Dementia Uncontrolled pain Problem Problems Medical Problems: (1) Multiple rib fractures Status: Acute Assessment Problems Medical Problems: (1) Multiple rib fractures Status: Acute Uncontrolled pain due to rib fractures -Continue current pain medications Deconditioning with frequent falls -PT/OT Dementia and depression -Continue current medications- -Checking TSH/B12 -Checking CBC/BMP/mag Disposition-working [facility] [place] [facility] Prophylaxis Lovenox Subjective the patient is complaining of some left chest pain that is reproducible to touch , denies fevers/chills/dysuria/nausea/vomiting/constipation/diarrhea Objective Vital Signs Date Time Temp Pulse Resp B/P (MAP) Pulse Ox O2 Delivery O2 Flow Rate FiO2 01/17/19 14:34 97.9 87 22 105/69 (81) 94 Nasal Cannula 2.0 Intake and Output 01/17/19 06:59 Intake Total 880 ml Output Total 200 ml Balance 680 ml Intake Oral 880 ml Output Urine Total 200 ml # Voids 5 Physical Exam Alert and oriented 2, person and place, knows month but not year PERRLA, EOMI Regular rate and rhythm Clear to auscultation bilateral Positive bowel sounds, nontender, nondistended TTP on the L chest area Cranial nerves II to XII appear intact Review of Relevant I have reviewed the following items francisco (where applicable) has been applied. Labs Laboratory Tests Test 01/16/19 20:51 01/17/19 06:26 Thyroid Stimulating Hormone (TSH) 1.747 uIU/mL (0.358-3.740) White Blood Count 9.9 x10^3/uL (4.0-11.0) Red Blood Count 4.20 x10^6/uL (4.30-5.70) Hemoglobin 13.5 g/dL (13.0-17.5) Hematocrit 39.8 % (39.0-53.0) Mean Corpuscular Volume 95 fL (79-100) Mean Corpuscular Hemoglobin 32 pg (25-35) Mean Corpuscular Hemoglobin Concent 34 g/dL (31-37) Red Cell Distribution Width 12.7 % (11.5-14.5) Platelet Count 210 x10^3/uL (140-400) Sodium Level 143 mmol/L (136-145) Potassium Level 3.7 mmol/L (3.5-5.1) Chloride Level 107 mmol/L (98-107) Carbon Dioxide Level 30 mmol/L (21-32) Anion Gap 6 (6-14) Blood Urea Nitrogen 26 mg/dL (8-26) Creatinine 1.0 mg/dL (0.7-1.3) Estimated GFR (Cockcroft-Gault) 70.8 Glucose Level 95 mg/dL (70-99) Calcium Level 8.9 mg/dL (8.5-10.1) Magnesium Level 1.8 mg/dL (1.8-2.4) Medications Current Medications Fentanyl Citrate (Fentanyl 2ml Vial) 50 mcg 1X ONCE IV Last administered on at 12:18; Start 01/14/19 at 12:15; Stop 01/14/19 at 12:16; Status DC Ondansetron HCl (Zofran) 4 mg PRN Q4HRS PRN IV NAUSEA/VOMITING; Start 01/14/19 at 12:45; Stop 01/15/19 at 12:45; Status DC Fentanyl Citrate (Fentanyl 2ml Vial) 25 mcg PRN Q2HR PRN IV PAIN Last administered on 01/15/19at 11:35; Start 01/14/19 at 12:45; Stop 01/15/19 at 12:45 ; Status DC Acetaminophen (Tylenol) 650 mg PRN Q4HRS PRN PO FEVER; Start 01/14/19 at 12:45 ; Stop 01/15/19 at 12:45; Status DC Bupropion HCl (Wellbutrin Xl) 150 mg DAILY PO Last administered on 01/17/19at 08 :29; Start 01/15/19 at 09:00 Doxylamine Succinate (Unisom) 25 mg DAILY PO ; Start 01/15/19 at 09:00; Stop at 09:00; Status DC Sertraline HCl (Zoloft) 225 mg DAILY PO ; Start 01/15/19 at 09:00; Stop at 09:00; Status DC Sertraline HCl (Zoloft) 100 mg DAILY PO Last administered on 01/17/19at 08:29; Start 01/15/19 at 09:00 Tamsulosin HCl (Flomax) 0.4 mg QHS PO Last administered on 01/16/19at 20:03; Start 01/14/19 at 21:00 Aspirin (Children'S Aspirin) 81 mg DAILYWBKFT PO ; Start 01/15/19 at 08:00; Stop 01/15/19 at 08:00; Status DC Atorvastatin Calcium (Lipitor) 10 mg QHS PO ; Start 01/14/19 at 21:00; Stop at 21:00; Status DC Calcium/Vitamin D (Oscal D 500mg/ 200uts) 1 tab DAILY PO Last administered on 08:29; Start 01/15/19 at 09:00 Multivitamins/ Calcium (Thera-M Plus) 1 tab DAILY PO Last administered on 08:29; Start 01/15/19 at 09:00 Fish Oil (Fish Oil) 1,000 mg DAILY PO Last administered on 01/17/19 08:29; Start 01/15/19 at 09:00 Melatonin 3 mg PRN QHS PRN PO INSOMNIA Last administered on 01/16/19 20:03; Start 01/14/19 at 17:15 Memantine (Namenda) 10 mg DAILY PO Last administered on 01/17/19 08:29; Start 01/15/19 at 09:00 Oxycodone HCl (Roxicodone) 5 mg PRN Q4HRS PRN PO PAIN Last administered on 01/17 09:34; Start 01/14/19 at 17:15 Lidocaine (Lidoderm) 2 patch DAILY TD Last administered on 01/17/19 08:29; Start 01/15/19 at 09:00 Psyllium Hydrophilic Mucilloid (Metamucil) 1 pkt DAILY PO Last administered on 01/17/19 08:29; Start 01/15/19 at 09:00 Donepezil HCl (Aricept) 10 mg BID PO Last administered on 01/17/19 08:29; Start 01/14/19 at 21:00 Enoxaparin Sodium (Lovenox 30mg Syringe) 30 mg Q24H SQ Last administered on 16:38; Start 01/16/19 at 17:30 Active Scripts Active Reported Aricept (Donepezil Hcl) 10 Mg Tablet 1 Tab PO BID Fiber (Dextrin) 350 Gm Powder 350 Gm PO DAILY Melatonin 3 Mg Tablet 3 Mg PO HS Naproxen Sodium 550 Mg Tablet 550 Mg PO Zoloft (Sertraline Hcl) 100 Mg Tablet 100 Mg PO DAILY Flomax (Tamsulosin Hcl) 0.4 Mg Cap.er.24h 0.4 Mg PO BID Namenda (Memantine Hcl) 10 Mg Tablet 10 Mg PO BID Calcium + Vitamin D Tablet (Calcium Carbonate/Vitamin D3) 1 Each Tablet 1 Each PO DAILY [place] 3 Fish Oil Softgel ([place]-3 Fatty Acids/Fish Oil) 1 Each Capsule.dr 1 Each PO DAILY Centrum Silver Tablet (Multivits-Min/Fa/Lycopene/Lut) 1 Each Tablet 1 Each PO DAILY Wellbutrin (Bupropion Hcl) 100 Mg Tablet 150 Mg PO DAILY Vitals/I & O Vital Sign - Last 24 Hours 01/16/19 01/16/19 01/16/19 01/16/19 19:20 19:50 20:03 23:07 Temp 98.1 Pulse 73 Resp 20 B/P (MAP) 138/72 (94) Pulse Ox 92 96 95 O2 Delivery Nasal Cannula Nasal Cannula Nasal Cannula Nasal Cannula O2 Flow Rate 2.0 2.0 2.0 2.0 01/17/19 01/17/19 01/17/19 01/17/19 00:30 05:05 05:12 08:30 Temp 97.8 Pulse 66 Resp 18 B/P (MAP) 134/82 (99) Pulse Ox 95 95 95 O2 Delivery Nasal Cannula Nasal Cannula Nasal Cannula Nasal Cannula O2 Flow Rate 2.0 2.0 2.0 2.0 01/17/19 01/17/19 01/17/19 01/17/19 09:34 10:34 10:38 14:34 Temp 98.2 97.9 Pulse 69 87 Resp 20 18 20 22 B/P (MAP) 108/65 (79) 105/69 (81) Pulse Ox 95 96 96 94 O2 Delivery Nasal Cannula Nasal Cannula Nasal Cannula Nasal Cannula O2 Flow Rate 2.0 2.0 2.0 2.0 Intake and Output 01/16/19 01/16/19 01/17/19 14:59 22:59 06:59 Intake Total 240 ml 240 ml 400 ml Output Total 200 ml Balance 40 ml 240 ml 400 ml NIELS PARTIDA MD Jan 17, 2019 16:54
[2019-01-17 19:22] VITALS: BP 121/73
[2019-01-17] MEDS: MELATONIN 3 MG TABLET PO PRN (21:12)
[2019-01-17] MEDS: TAMSULOSIN 0.4 MG CAP.ER.24H. PO SCH (21:12)
--- NOTE | 2019-01-17 23:02 | PN ---
DATE: 01/17/2019 SUBJECTIVE: The patient continues to have pain, confined to the left chest. He has had 2 previous falls and fracture of the feet of the 8th, 9th and 10th ribs. He denies any new medical or neurological complaints. OBJECTIVE: GENERAL: A cachectic, well-developed male, in no acute distress. VITAL SIGNS: Blood pressure 105/69, respiratory rate 22, pulse is 87 and regular, temperature 97.7, oxygen saturation 94% on 2 liters by nasal cannula. HEENT: Normocephalic, atraumatic, otherwise unremarkable. NECK: Supple. Negative for carotid bruit, lymphadenopathy or thyromegaly. LUNGS: Clear to A and P. CARDIOVASCULAR: Regular rate and rhythm. Normal S1, S2. ABDOMEN: Soft. Bowel sounds positive. EXTREMITIES: Negative for cyanosis, clubbing or pitting edema. NEUROLOGICAL EXAM: Mental Status: The patient is alert, but disoriented to time. He is oriented to place and himself. The speech is a little slow. There is no language dysfunction. Memory, judgment, abstraction thinking are fair. The patient denies hallucination or delusion. Cranial nerves are intact. No focal motor or sensory deficit. Deep tendon reflexes are symmetric and hypoactive with absent Achilles responses. Gait not tested. LABORATORY DATA: CBC revealed white blood cells of 9.9 thousand, hemoglobin 13.5, hematocrit 39.8, platelet count 210,000. Chemistry revealed sodium of 143, potassium 3.7, chloride 107, CO2 of 30, BUN 26, creatinine 1, glucose 95, calcium 8.9. TSH is normal at 1.74. IMPRESSION: 1. Status post fall, resulted in mildly displaced fractures of the left 8th, 9th and 10th ribs. 2. Longstanding history of dementia. 3. Multiple medical problems include hypertension, hyperlipidemia, benign prostate hypertrophy. RECOMMENDATIONS: Continue with current management and physical therapy as tolerated. The patient waiting for a penitentiary placement. M Leland LLANOS MD DR: NAYLA/cecile JOB#: [id number] / [id number]
[2019-01-18 05:44] VITALS: BP 131/72
[2019-01-18] MEDS: LIDOCAINE (700MG/PATCH) PATCH. TD SCH (08:46)
[2019-01-18] MEDS: PSYLLIUM SEED (WITH SUGAR) PACKET. PO SCH (08:47)
[2019-01-18] MEDS: MULTIVITAMIN with MINERAL TABLET. PO SCH (08:47)
[2019-01-18] MEDS: SERTRALINE 100 MG TABLET. PO SCH (08:47)
[2019-01-18] MEDS: MEMANTINE 10 MG TABLET. PO SCH (08:47)
[2019-01-18] MEDS: OMEGA-3 FATTY ACIDS/FISH OIL 1,000 MG CAPSULE. PO SCH (08:47)
[2019-01-18] MEDS: buPROPion XL 150 MG TAB.ER.24H PO SCH (08:48)
[2019-01-18] MEDS: CALCIUM CARB/VIT D3 500/200 TABLET PO SCH (08:50)
[2019-01-18] MEDS: DONEPEZIL HCL 10 MG TABLET PO SCH ×2 (08:50→20:50)
[2019-01-18 10:25] VITALS: BP 123/64
[2019-01-18] MEDS ORDERED: LACTULOSE 20 GM/30 ML SOLUTION. PO PRN (11:45)
--- NOTE | 2019-01-18 11:45 | PDOC ---
PROGRESS NOTES Diagnosis Problem Problems Medical Problems: (1) Multiple rib fractures Status: Acute Assessment Problems Medical Problems: (1) Multiple rib fractures Status: Acute Uncontrolled pain due to rib fractures -Continue current pain medications Deconditioning with frequent falls -PT/OT Dementia and depression -Continue current medications- -TSH- wnls -B12- pending Disposition-working on custodial facility placement Prophylaxis Lovenox Subjective No CP, SOB, F/C Continues to have L rib pain Objective Vital Signs Date Time Temp Pulse Resp B/P (MAP) Pulse Ox O2 Delivery O2 Flow Rate FiO2 01/18/19 05:44 97.8 89 16 131/72 (91) 94 Nasal Cannula 2.0 Intake and Output 01/18/19 06:59 Intake Total 560 ml Output Total 100 ml Balance 460 ml Intake Oral 560 ml Output Urine Total 100 ml # Voids 3 Physical Exam AOx2, NAD PERRLA, EOMI RRR CTAB +BS,NT, ND CN II-XII grossly intact Review of Relevant I have reviewed the following items francisco (where applicable) has been applied. Labs Laboratory Tests Test 01/16/19 20:51 01/17/19 06:26 Thyroid Stimulating Hormone (TSH) 1.747 uIU/mL (0.358-3.740) White Blood Count 9.9 x10^3/uL (4.0-11.0) Red Blood Count 4.20 x10^6/uL (4.30-5.70) Hemoglobin 13.5 g/dL (13.0-17.5) Hematocrit 39.8 % (39.0-53.0) Mean Corpuscular Volume 95 fL (79-100) Mean Corpuscular Hemoglobin 32 pg (25-35) Mean Corpuscular Hemoglobin Concent 34 g/dL (31-37) Red Cell Distribution Width 12.7 % (11.5-14.5) Platelet Count 210 x10^3/uL (140-400) Sodium Level 143 mmol/L (136-145) Potassium Level 3.7 mmol/L (3.5-5.1) Chloride Level 107 mmol/L (98-107) Carbon Dioxide Level 30 mmol/L (21-32) Anion Gap 6 (6-14) Blood Urea Nitrogen 26 mg/dL (8-26) Creatinine 1.0 mg/dL (0.7-1.3) Estimated GFR (Cockcroft-Gault) 70.8 Glucose Level 95 mg/dL (70-99) Calcium Level 8.9 mg/dL (8.5-10.1) Magnesium Level 1.8 mg/dL (1.8-2.4) Medications Current Medications Fentanyl Citrate (Fentanyl 2ml Vial) 50 mcg 1X ONCE IV Last administered on at 12:18; Start 01/14/19 at 12:15; Stop 01/14/19 at 12:16; Status DC Ondansetron HCl (Zofran) 4 mg PRN Q4HRS PRN IV NAUSEA/VOMITING; Start 01/14/19 at 12:45; Stop 01/15/19 at 12:45; Status DC Fentanyl Citrate (Fentanyl 2ml Vial) 25 mcg PRN Q2HR PRN IV PAIN Last administered on 01/15/19at 11:35; Start 01/14/19 at 12:45; Stop 01/15/19 at 12:45 ; Status DC Acetaminophen (Tylenol) 650 mg PRN Q4HRS PRN PO FEVER; Start 01/14/19 at 12:45 ; Stop 01/15/19 at 12:45; Status DC Bupropion HCl (Wellbutrin Xl) 150 mg DAILY PO Last administered on 01/18/19at 08 :48; Start 01/15/19 at 09:00 Doxylamine Succinate (Unisom) 25 mg DAILY PO ; Start 01/15/19 at 09:00; Stop at 09:00; Status DC Sertraline HCl (Zoloft) 225 mg DAILY PO ; Start 01/15/19 at 09:00; Stop at 09:00; Status DC Sertraline HCl (Zoloft) 100 mg DAILY PO Last administered on 01/18/19at 08:47; Start 01/15/19 at 09:00 Tamsulosin HCl (Flomax) 0.4 mg QHS PO Last administered on 01/17/19at 21:12; Start 01/14/19 at 21:00 Aspirin (Children'S Aspirin) 81 mg DAILYWBKFT PO ; Start 01/15/19 at 08:00; Stop 01/15/19 at 08:00; Status DC Atorvastatin Calcium (Lipitor) 10 mg QHS PO ; Start 01/14/19 at 21:00; Stop at 21:00; Status DC Calcium/Vitamin D (Oscal D 500mg/ 200uts) 1 tab DAILY PO Last administered on 08:50; Start 01/15/19 at 09:00 Multivitamins/ Calcium (Thera-M Plus) 1 tab DAILY PO Last administered on 08:47; Start 01/15/19 at 09:00 Fish Oil (Fish Oil) 1,000 mg DAILY PO Last administered on 01/18/19 08:47; Start 01/15/19 at 09:00 Melatonin 3 mg PRN QHS PRN PO INSOMNIA Last administered on 01/17/19 21:12; Start 01/14/19 at 17:15 Memantine (Namenda) 10 mg DAILY PO Last administered on 01/18/19 08:47; Start 01/15/19 at 09:00 Oxycodone HCl (Roxicodone) 5 mg PRN Q4HRS PRN PO PAIN Last administered on 01/17 23:02; Start 01/14/19 at 17:15 Lidocaine (Lidoderm) 2 patch DAILY TD Last administered on 01/18/19 08:46; Start 01/15/19 at 09:00 Psyllium Hydrophilic Mucilloid (Metamucil) 1 pkt DAILY PO Last administered on 01/18/19 08:47; Start 01/15/19 at 09:00 Donepezil HCl (Aricept) 10 mg BID PO Last administered on 01/18/19 08:50; Start 01/14/19 at 21:00 Enoxaparin Sodium (Lovenox 30mg Syringe) 30 mg Q24H SQ Last administered on 16:38; Start 01/16/19 at 17:30 Active Scripts Active Reported Aricept (Donepezil Hcl) 10 Mg Tablet 1 Tab PO BID Fiber (Dextrin) 350 Gm Powder 350 Gm PO DAILY Melatonin 3 Mg Tablet 3 Mg PO HS Naproxen Sodium 550 Mg Tablet 550 Mg PO Zoloft (Sertraline Hcl) 100 Mg Tablet 100 Mg PO DAILY Flomax (Tamsulosin Hcl) 0.4 Mg Cap.er.24h 0.4 Mg PO BID Namenda (Memantine Hcl) 10 Mg Tablet 10 Mg PO BID Calcium + Vitamin D Tablet (Calcium Carbonate/Vitamin D3) 1 Each Tablet 1 Each PO DAILY [place] 3 Fish Oil Softgel ([place]-3 Fatty Acids/Fish Oil) 1 Each Capsule.dr 1 Each PO DAILY Centrum Silver Tablet (Multivits-Min/Fa/Lycopene/Lut) 1 Each Tablet 1 Each PO DAILY Wellbutrin (Bupropion Hcl) 100 Mg Tablet 150 Mg PO DAILY Vitals/I & O Vital Sign - Last 24 Hours 01/17/19 01/17/19 01/17/19 01/17/19 14:34 18:30 19:22 20:00 Temp 97.9 97.7 Pulse 87 83 Resp 22 20 20 B/P (MAP) 105/69 (81) 121/73 (89) Pulse Ox 94 94 94 O2 Delivery Nasal Cannula Nasal Cannula Nasal Cannula Nasal Cannula O2 Flow Rate 2.0 2.0 2.0 2.0 01/17/19 01/17/19 01/18/19 01/18/19 23:02 23:10 00:02 05:44 Temp 97.8 Pulse 84 89 Resp 16 16 B/P (MAP) 131/72 (91) Pulse Ox 94 95 95 94 O2 Delivery Nasal Cannula Nasal Cannula Nasal Cannula Nasal Cannula O2 Flow Rate 2.0 2.0 2.0 2.0 Intake and Output 01/17/19 01/17/19 01/18/19 14:59 22:59 06:59 Intake Total 240 ml 320 ml Output Total 100 ml 0 ml Balance 240 ml 220 ml 0 ml NIELS PARTIDA MD Jan 18, 2019 11:45
[2019-01-18] MEDS: oxyCODONE IR 5 MG TABLET PO PRN (15:05)
[2019-01-18 16:25] VITALS: BP 152/75
[2019-01-18] MEDS: ENOXAPARIN 30 MG/0.3 ML SYRINGE. SQ SCH (16:33)
--- NOTE | 2019-01-18 19:17 | PN ---
DATE: SUBJECTIVE: The patient denies any new medical neurological complaints. He is more alert and cooperative. He continues to have mild left lateral chest pain secondary to recent fall and fracture of multiple ribs. OBJECTIVE: GENERAL: Cachectic male, not in acute distress. VITAL SIGNS: Blood pressure 131/72, respiratory rate 16, pulse is 89 regular, temperature 97.8, oxygen saturation is 94% on 2 liters by nasal cannula. HEENT: Normocephalic, atraumatic, otherwise unremarkable. NECK: Supple. Negative for carotid bruit, lymphadenopathy, or thyromegaly. LUNGS: Clear to A and P. CARDIOVASCULAR: Regular rate and rhythm. Normal S1, S2. ABDOMEN: Soft. Bowel sounds positive. EXTREMITIES: Negative for cyanosis, clubbing, or pitting edema. NEUROLOGICAL EXAM: Mental status: The patient is alert and oriented x 3. Speech is fluent. There is no language dysfunction. Memory, judgment, and abstract thinking are fair. The patient denies hallucination or delusion. The patient is oriented to himself. Cranial nerves are intact except for bilateral hearing loss. Motor examination: The patient moves his upper and lower extremities equally. Deep tendon reflexes were symmetric and hypoactive with absent Achilles responses. Gait: The patient has unsteady stance. IMPRESSION: 1. Frequent falls resulted in multiple rib mildly displaced fractures as described above. 2. Dementia. 3. Multiple medical problems including hypertension, hyperlipidemia, benign prostate hypertrophy. RECOMMENDATIONS: 1. Continue with current management. 2. Await for possible [facility] placement. M Leland LLANOS MD DR: NAYLA/cecile JOB#: [id number] / [id number]
[2019-01-18 19:59] VITALS: BP 150/71
[2019-01-18] MEDS: TAMSULOSIN 0.4 MG CAP.ER.24H. PO SCH (20:50)
[2019-01-18 23:19] VITALS: BP 145/76
[2019-01-19 05:18] VITALS: BP 161/71
[2019-01-19 06:46] LABS: CALCIUM 8.9 mg/dL (8.5-10.1); CREATININE 0.9 mg/dL (0.7-1.3)
[2019-01-19 06:47] LABS: HEMATOCRIT 39.7 % (39.0-53.0); HEMOGLOBIN 13.3 g/dL (13.0-17.5); RED BLOOD COUNT 4.16 x10^6/uL (4.30-5.70); RED CELL DISTRIBUTION WIDTH 12.5 % (11.5-14.5); WHITE BLOOD COUNT 9.1 x10^3/uL (4.0-11.0)
[2019-01-19] MEDS: CALCIUM CARB/VIT D3 500/200 TABLET PO SCH (08:35)
[2019-01-19] MEDS: DONEPEZIL HCL 10 MG TABLET PO SCH (08:35)
[2019-01-19] MEDS: MULTIVITAMIN with MINERAL TABLET. PO SCH (08:35)
[2019-01-19] MEDS: MEMANTINE 10 MG TABLET. PO SCH (08:35)
[2019-01-19] MEDS: SERTRALINE 100 MG TABLET. PO SCH (08:35)
[2019-01-19] MEDS: OMEGA-3 FATTY ACIDS/FISH OIL 1,000 MG CAPSULE. PO SCH (08:35)
[2019-01-19] MEDS: LIDOCAINE (700MG/PATCH) PATCH. TD SCH (08:35)
[2019-01-19] MEDS: PSYLLIUM SEED (WITH SUGAR) PACKET. PO SCH (08:35)
[2019-01-19] MEDS: buPROPion XL 150 MG TAB.ER.24H PO SCH (08:35)
[2019-01-19 11:04] VITALS: BP 128/67
--- NOTE | 2019-01-19 13:53 | PN ---
DATE: 01/19/2019 SUBJECTIVE: The patient denies any new medical or neurological complaints. OBJECTIVE: GENERAL: Well-developed, well-nourished male, not in acute distress. VITAL SIGNS: Blood pressure 161/71, respiratory rate 24, pulse is 64, temperature 97.8, oxygen saturation 93% on 2 liters by nasal cannula. HEENT: Normocephalic, atraumatic, otherwise unremarkable. NECK: Supple. Negative for carotid bruit, lymphadenopathy, or thyromegaly. LUNGS: Clear to A and P. CARDIOVASCULAR: Regular rhythm, normal S1, S2. There is no S3, S4, or murmur. ABDOMEN: Soft. Bowel sounds positive. EXTREMITIES: Negative for cyanosis, clubbing, or pitting edema. NEUROLOGICAL EXAM: Mental Status: The patient is alert and oriented x 3. Speech is more fluent. There is no language dysfunction. Memory, judgment and abstracting thinking are fair. The patient denies hallucination or delusion. Cranial nerves are intact except for bilateral hearing loss. No focal motor or sensory deficit. Deep tendon reflexes were symmetric and hypoactive with absent Achilles responses. Gait: The stance is slightly unsteady. The patient uses a walker for ambulation. LABORATORY DATA: CBC revealed white blood cells of 9100, hemoglobin 13.3, hematocrit 39.7, platelet count 216,000. Chemistry revealed sodium 142, potassium 4, chloride 106, CO2 29, BUN 23, creatinine 0.9, glucose 90, calcium is 8.9, and magnesium 2. IMPRESSION: 1. Frequent falls resulted in multiple rib fractures with mild displacement. 2. Dementia. 3. Multiple medical problems include hypertension, hyperlipidemia, benign prostatic hypertrophy. RECOMMENDATIONS: Continue with current management. Await for senior living placement. M Leland LLANOS MD DR: NAYLA/cecile JOB#: [id number] / [id number]
--- NOTE | 2019-02-26 13:02 | DS ---
DATE OF DISCHARGE: 01/19/2019 HOSPITAL COURSE: The patient is an 88-year-old male patient who was admitted to [facility] on 01/14/2019 as he fell about 3 times over the last week before admission. His stated that he tripped and fell, hitting the left side of his chest against the TV cabinet. He did not hit his head or lose consciousness. He did fall to the ground and needed his 16-year-old grandson to pick him up and put him in the recliner. The pain intensified throughout the evening and as he was unable to do anything without severe pain, he was brought to the Emergency Room of [facility] where he was extensively investigated and was found to have acute traumatic mildly displaced fracture of his left lateral 8th, 9th, and 10th ribs, and therefore, he was admitted for pain management. He was started on Lidoderm patches and also on oral pain medication. The plan was initially for him to go to [facility]; however, because of unavailability, he was accepted at [facility] and the patient was discharged there to continue the process of rehabilitation and pain management. PHYSICAL EXAMINATION: GENERAL: On the day of discharge, the patient was resting slightly propped up in bed, in no apparent respiratory distress, pale, cachectic, but no jaundice, cyanosis, or thyromegaly. No jugular venous distention. No limb edema. VITAL SIGNS: His heart rate was 61, blood pressure was 128/67, his temperature was 97.6, respiratory rate was 20, and oxygen saturation was 98% on 2 liters of oxygen. HEAD, EYES, EARS, NOSE AND THROAT: Showed normocephalic, atraumatic. NECK: Supple. HEART: Showed normal first and second heart sounds. No gallop, rub or murmur. CHEST: Clear to auscultation. No crepitation or rhonchi. ABDOMEN: Obviously tenderness on the left side of the chest along the left mid axillary line. His abdomen was scaphoid, soft, nontender. NEUROLOGIC: He is demented, however, without any lateralizing sign. All his cranial nerves are intact. He moves extremities without difficulty. LABORATORY DATA: His lab work showed that his white cell count was 9000, hemoglobin 13, hematocrit 39, MCV 95, and platelet count 216,000. His chemistry showed a serum sodium 142, potassium 4, chloride 106, bicarbonate 29, anion gap of 7, BUN 23, creatinine 0.9, estimated GFR was 80 mL per minute. His glucose was 90, calcium was 8.9, magnesium 2. DISCHARGE MEDICATIONS: He was discharged to [facility] to continue on pain medication, Lidoderm patches as well as his Aricept 10 mg twice a day, Flomax 0.4 mg twice a day, omega-3 fatty acids 1000 mg once a day, naproxen 550 mg twice a day, Wellbutrin 150 mg daily, Zoloft 100 mg daily, Namenda 10 mg twice a day, calcium with vitamin D one tablet once a day and Dextrin 250 gram powder once a day, multivitamin with mineral 1 tablet once a day, melatonin 3 mg at bedtime. FINAL DISCHARGE DIAGNOSES: Recurrent falls and unsteady gait sustaining multiple mildly displaced fractures of the left lateral 8th, 9th and 10th ribs. Other medical problems include benign prostatic hypertrophy, hyperlipidemia, anxiety, depression, insomnia as well as dementia. ALTAGRACIA DUNN MD DR: CHUCK/cecile JOB#: [id number] / [id number]
== END 2019-01-19 13:40 | DRG 184 ==
LOC: ER 11:39 → 1 SOUTH 12:25
PROVIDERS: ADMIT Internal Medicine; ATTEND Family Medicine
DX: S22.42XA Multiple fractures of ribs, left side, initial encounter for closed fracture (principal); R64 Cachexia; R26.81 Unsteadiness on feet; F32.9 Major depressive disorder, single episode, unspecified; F41.9 Anxiety disorder, unspecified; F03.90 Unspecified dementia, unspecified severity, without behavioral disturbance, psychotic disturbance, mood disturbance, and anxiety; G47.00 Insomnia, unspecified; R29.6 Repeated falls; N40.0 Benign prostatic hyperplasia without lower urinary tract symptoms; I10 Essential (primary) hypertension; E78.5 Hyperlipidemia, unspecified; W18.39XA Other fall on same level, initial encounter; Y93.89 Activity, other specified; Y92.89 Other specified places as the place of occurrence of the external cause; Y99.8 Other external cause status; Z79.899 Other long term (current) drug therapy; Z87.891 Personal history of nicotine dependence; Z91.81 History of falling; Z98.41 Cataract extraction status, right eye; Z98.42 Cataract extraction status, left eye; Z68.23 Body mass index [BMI] 23.0-23.9, adult
CPT/HCPCS: 36415; 70450; 71101; 80048; 80053; 82607; 83735; 84443; 84484; 85025; 85027; 96374; J1650; J3010; 97110; 97116; 97530; 97535; 99285-25

== ENCOUNTER 2021-04-30 14:10 | Emergency (ER) | payer MEDICARE ==
[~2021-04-30] VITALS: Ht 160 cm; Wt 61.0 kg
[2021-04-30 14:10] VITALS: BP 112/64
[~2021-04-30 14:10] MED LIST changes: +DEXT350P PO; -MELA3TAB2 PO; +MELA3TAB4 PO; +SERT-269 PO; -SERT100T8 PO
--- NOTE | 2021-04-30 15:23 | PHYS DOC ---
Past History Past Medical History: Dementia, Depression Additional Past Medical Histor: BPH, insomnia (NIKOLAS LOWERY APRN) Past Surgical History: No Surgical History (NIKOLAS LOWERY APRN) Smoking: Quit Greater Than 1 Year Alcohol Use: None Drug Use: None (NIKOLAS LOWERY APRN) General Adult EDM: Chief Complaint: MECHANICAL FALL HPI: HPI: Patient is a 89-year-old male who presents with laceration to posterior right side of head after a fall. Staff at [facility] states that patient fell backwards hitting his head. Denies loss of consciousness. Patient is not on any blood thinners. Patient does report some pain to the back of his head. Bleeding is controlled. Denies neck or back pain. Patient has a history of dementia, depression, falls. (NIKOLAS LOWERY APRN) Review of Systems: Review of Systems: Constitutional: Denies fever or chills Eyes: Denies change in visual acuity HENT: Denies nasal congestion or sore throat Respiratory: Denies cough or shortness of breath Cardiovascular: Denies chest pain or edema GI: Denies abdominal pain, nausea, vomiting, bloody stools or diarrhea : Denies dysuria Musculoskeletal: Denies back pain or joint pain Integument: Reports head pain and laceration to right side of head Neurologic: Denies headache, focal weakness or sensory changes Endocrine: Denies polyuria or polydipsia Lymphatic: Denies swollen glands Psychiatric: Denies depression or anxiety (NIKOLAS LOWERY APRN) Allergies: Allergies: Allergies Coded Allergies Type Severity Reaction Last Updated Verified Penicillins Allergy Intermediate extremity swelling 04/25/14 Yes (NIKOLAS LOWERY APRN) Physical Exam: PE: Constitutional: Well developed, well nourished, no acute distress, non-toxic appearance. [] HENT: Normocephalic, atraumatic, bilateral external ears normal, oropharynx moist, no oral exudates, nose normal. [] Eyes: PERRLA, EOMI, conjunctiva normal, no discharge. [] Neck: Normal range of motion, no tenderness, supple, no stridor. [] Cardiovascular:Heart rate regular rhythm, no murmur [] Lungs & Thorax: Bilateral breath sounds clear to auscultation [] Abdomen: Bowel sounds normal, soft, no tenderness, no masses, no pulsatile masses. [] Skin: 1-1/2 cm laceration to posterior, right side of head Back: No tenderness, no CVA tenderness. [] Extremities: No tenderness, no cyanosis, no clubbing, ROM intact, no edema. [] Neurologic: Alert and oriented X 3, normal motor function, normal sensory function, no focal deficits noted. [] Psychologic: Affect normal, judgement normal, mood normal. [] (NIKOLAS LOWERY APRN) Current Patient Data: Vital Signs: Vital Signs Date Time Temp Pulse Resp B/P (MAP) Pulse Ox O2 Delivery O2 Flow Rate FiO2 04/30/21 14:10 98.1 55 16 112/64 (80) 97 Room Air (NIKOLAS LOWERY APRN) EKG: EKG: [] (NIKOLAS LOWERY APRN) Radiology/Procedures: Radiology/Procedures: []EXAM: Head and cervical spine CT without contrast. HISTORY: Fall. TECHNIQUE: Computed tomographic images of the head and cervical spine were obtained without contrast. *One or more of the following individualized dose reduction techniques were utilized for this examination: 1. Automated exposure control. 2. Adjustment of the mA and/or kV according to patient size. 3. Use of iterative reconstruction technique. COMPARISON: 08/23/2018. FINDINGS: Head: There is no hemorrhage. There is no mass effect or midline shift. There is moderate ventricular enlargement due to cerebral atrophy. There is no convincing hydrocephalus. There is decreased attenuation within the cerebral white matter, likely due to chronic small vessel disease. 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 There is evidence of lens surgery. The paranasal sinuses mastoid air cells are clear. There is no suspicious calvarial lesion. Cervical spine: There is cervical curvature due to thoracic scoliosis. There is mild multilevel degenerative listhesis. There is endplate remodeling with disc space narrowing and osteophytosis throughout the cervical spine. There is facet and uncovertebral arthropathy. There is calcified pannus surrounding the dens. There is no suspicious osseous lesion. There is no acute fracture. The combination of degenerative changes results in mild right and severe left foraminal and moderate central canal stenosis at C3-C4, moderate to severe bilateral foraminal stenosis at C4-C5, mild right and moderate to severe left foraminal stenosis at C5-C6, and moderate right and mild left foraminal stenosis at C6-C7. There is biapical emphysema. There is calcified atherosclerotic plaque involving the carotid bifurcations. IMPRESSION: 1. No acute intracranial finding or evidence of acute cervical spine trauma. 2. Moderate ventricular enlargement due to cerebral atrophy. There is no convincing hydrocephalus. 3. Bilateral cerebral white matter changes, likely due to chronic small vessel disease. 4. 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 Electronically signed by: Leigha Randhawa MD (04/30/2021 3:22 PM) [id number] (NIKOLAS LOWERY APRN) Heart Score: C/O Chest Pain: No Risk Factors: Risk Factors: DM, Current or recent (<one month) smoker, HTN, HLP, family history of CAD, obesity. Risk Scores: Score 0 - 3: 2.5% MACE over next 6 weeks - Discharge Home Score 4 - 6: 20.3% MACE over next 6 weeks - Admit for Clinical Observation Score 7 - 10: 72.7% MACE over next 6 weeks - Early Invasive Strategies (NIKOLAS LOWERY APRN) Course & Med Decision Making: Course & Med Decision Making Pertinent Labs and Imaging studies reviewed. (See chart for details) [] 89-year-old male presents with 1/2 cm laceration to posterior right head after a fall. Bleeding was controlled. Denies blood thinners. Neuro exam negative. CT of head and cervical spine ordered to rule out intracranial bleeding or fracture. CT was negative. Patient's lac was cleaned, Dermabond applied. Up-to-date on immunizations. Patient will be sent by EMS back to [facility]. Patient is hemodynamically stable. Patient is appreciative and okay with discharge plan. (NIKOLAS LOWERY APRN) Dragon Disclaimer: Dragon Disclaimer: This electronic medical record was generated, in whole or in part, using a voice recognition dictation system. (NIKOLAS LOWERY APRN) Dragon Disclaimer: ABCs unremarkable. I disclosed entirety of ER findings and discussed most likely diagnosis of []. I stressed need for close outpatient follow-up to review today's ER visit. Strict return precautions were also discussed at length with good understanding by patient. Patient voiced understanding and agreement with the plan. Patient knows to come back for repeat evaluation if concerning signs or symptoms present prior to outpatient follow-up. Hemodynamically stable, ambulatory and well-appearing at time of disposition. (ADRIENNE TAMAYO DO) Laceration Repair Lac Repair Indication: Laceration to posterior, right side of head Procedure: The area was then cleansed..The patient was placed in the appropriate position and Dermabond was applied.. The wound area was then dressed with 4 x 4. Total repaired wound length: 1-1/2 cm The patient tolerated the procedure Complications: No complications (NIKOLAS LOWERY APRN) Departure Departure: Impression: Primary Impression: Fall Qualified Codes: W19.XXXA - Unspecified fall, initial encounter Disposition: HOME / SELF CARE / HOMELESS Condition: STABLE Referrals: RADHAMES HARRINGTON (PCP) Patient Instructions: Fall Prevention and Home Safety, [id number] Additional Instructions: You were seen in the emergency room after a fall. The laceration to the back of your head was cleaned and Dermabond was applied. CT of your head and neck were negative for any intracranial bleeding or fractures. Please return to the emergency room with worsening symptoms or concerns. EMERGENCY DEPARTMENT GENERAL DISCHARGE INSTRUCTIONS Thank you for coming to [facility] (ED) today and trusting us with you care. We trust that you had a positivie experience in our Emergency Department. If you wish to speak to the department management, you may call the director at [phone]. YOUR FOLLOW UP INSTRUCTIONS ARE FOLLOWS: 1. Do you have a private Doctor? If you do not have a private doctor, please ask for a resource list of physicians or clinics that may be able to assist you with follow up care. 2. The Emergency Physician has interpreted your x-rays. The X-Ray specialist will also review them. If there is a change in the findings, you will be notified in 48 hours when at all possible. 3. A lab test or culture has been done, your results will be reviewed and you will be notified if you need a change in treatment. ADDITIONAL INSTRUCTIONS AND INFORMATION: 1. Your care today has been supervised by a physician who is specially trained in emergency care. Many problems require more than one evaluation for a complete diagnosis and treatment. We recommend that you schedule your follow up appointment as recommended to ensure complete treatment of you illness or injury. If you are unable to obtain follow up care and continue to have a problem, or if your condition worsens, we recommend that you return to the ED. 2. We are not able to safely determine your condition over the phone nor are we able to give sound medical advice over the phone. For these safety reasons, if you call for medical advice we will ask you to come to the ED for further evaluation. 3. If you have any questions regarding these discharge instructions please call the ED at [phone]. SAFETY INFORMATION: In the interest of safety, wellness, and injury prevention; we encourage you to wear your sealbelt, if you smoke; quite smoking, and we encourage family to use a protective helmet for bicycling and other sporting events that present an increased risk for head injury. IF YOUR SYMPTOMS WORSEN OR NEW SYMPTOMS DEVELOP, OR YOU HAVE CONCERNS ABOUT YOUR CONDITION; OR IF YOUR CONDITION WORSENS WHILE YOU ARE WAITING FOR YOUR FOLLOW UP APPOINTMENT; EITHER CONTACT YOUR PRIMARY CARE DOCTOR, THE PHYSICIAN WHOSE NAME AND NUMBER YOU WERE GIVEN, OR RETURN TO THE ED IMMEDIATELY. NIKOLAS LOWERY APRN Apr 30, 2021 15:23 ADRIENNE TAMAYO DO May 01, 2021 06:45
--- NOTE | 2021-04-30 15:24 | RAD ---
EXAM: Head and cervical spine CT without contrast. HISTORY: Fall. TECHNIQUE: Computed tomographic images of the head and cervical spine were obtained without contrast. *One or more of the following individualized dose reduction techniques were utilized for this examina tion: 1. Automated exposure control. 2. Adjustment of the mA and/or kV according to patient size. 3. Use of iterative reconstruction technique. COMPARISON: 08/23/2018. FINDINGS: Head: There is no hemorrhage. There is no mass effect or midline shift. There is moderate ventricular enlargement due to cerebral atrophy. There is no convincing hydrocephalus. There is decreased attenu ation within the cerebral white matter, likely due to chronic small vessel disease. 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 There is evidence of yahaira s surgery. The paranasal sinuses mastoid air cells are clear. There is no suspicious calvarial lesion . Cervical spine: There is cervical curvature due to thoracic scoliosis. There is mild multilevel degen erative listhesis. There is endplate remodeling with disc space narrowing and osteophytosis throughou t the cervical spine. There is facet and uncovertebral arthropathy. There is calcified pannus surroun ding the dens. There is no suspicious osseous lesion. There is no acute fracture. The combination of degenerative changes results in mild right and severe left foraminal and moderate central canal stenosis at C3-C4, moderate to severe bilateral foraminal stenosis at C4-C5, mild right and moderate to severe left foraminal stenosis at C5-C6, and moderate right and mild left foraminal stenosis at C6-C7. There is biapical emphysema. There is calcified atherosclerotic plaque involving t he carotid bifurcations. IMPRESSION: 1. No acute intracranial finding or evidence of acute cervical spine trauma. 2. Moderate ventricular enlargement due to cerebral atrophy. There is no convincing hydrocephalus. 3. Bilateral cerebral white matter changes, likely due to chronic small vessel disease. 4. 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 Electronically signed by: Leigha Randhawa MD (04/30/2021 3:22 PM) [id number]
== END 2021-04-30 17:40 | disposition home or self-care (01) ==
LOC: ER 14:10
DX: S01.01XA Laceration without foreign body of scalp, initial encounter (principal); F03.90 Unspecified dementia, unspecified severity, without behavioral disturbance, psychotic disturbance, mood disturbance, and anxiety; F32.9 Major depressive disorder, single episode, unspecified; Z87.891 Personal history of nicotine dependence; Z88.0 Allergy status to penicillin; W18.09XA Striking against other object with subsequent fall, initial encounter; Y93.89 Activity, other specified; Y92.89 Other specified places as the place of occurrence of the external cause; Y99.8 Other external cause status
CPT/HCPCS: 12001; 70450; 72125; 99285-25

== ENCOUNTER 2021-05-05 19:40 | Inpatient (IN) | payer MEDICARE ==
[~2021-05-05] VITALS: Ht 160 cm; Wt 56.0 kg
--- NOTE | 2021-05-05 20:59 | PHYS DOC ---
Past History Past Medical History: Dementia, Depression Additional Past Medical Histor: BPH, insomnia (NIKOLAS LOWERY APRN) Past Medical History: Anxiety, Arthritis, Dementia (KHURRAM CATHERINE MD) Past Surgical History: No Surgical History (NIKOLAS LOWERY APRN) Smoking: Quit Greater Than 1 Year Alcohol Use: None Drug Use: None (NIKOLAS LOWERY APRN) General Adult EDM: Chief Complaint: ALTERED MENTAL STATUS HPI: HPI: Patient is a 89-year-old male who presents from [place] for altered mental status. Patient currently lives with at [facility]. called EMS and stated he was acting weird her than normal the last couple of days. states "he has fallen a few times and is mumbling with his speech". Patient is alert to self. Patient has a history of dementia and insomnia. (NIKOLAS LOWERY APRN) Review of Systems: Review of Systems: Constitutional: Denies fever or chills Eyes: Denies change in visual acuity HENT: Denies nasal congestion or sore throat Respiratory: Denies cough or shortness of breath Cardiovascular: Denies chest pain or edema GI: Denies abdominal pain, nausea, vomiting, bloody stools or diarrhea : Denies dysuria Musculoskeletal: Denies back pain or joint pain Integument: Denies rash Neurologic: Denies headache, focal weakness or sensory changes Endocrine: Denies polyuria or polydipsia Lymphatic: Denies swollen glands Psychiatric: Denies depression or anxiety (NIKOLAS LOWERY APRN) Allergies: Allergies: Allergies Coded Allergies Type Severity Reaction Last Updated Verified Penicillins Allergy Intermediate extremity swelling 04/25/14 Yes (NIKOLAS LOWERY APRN) Physical Exam: PE: Constitutional: Well developed, well nourished, no acute distress, non-toxic appearance. [] HENT: Normocephalic, atraumatic, bilateral external ears normal, oropharynx moist, no oral exudates, nose normal. [] Eyes: PERRLA, EOMI, conjunctiva normal, no discharge. [] Neck: Normal range of motion, no tenderness, supple, no stridor. [] Cardiovascular:Heart rate regular rhythm, no murmur [] Lungs & Thorax: Bilateral breath sounds clear to auscultation [] Abdomen: Bowel sounds normal, soft, no tenderness, no masses, no pulsatile masses. [] Skin: Warm, dry, no erythema, no rash. [] Back: No tenderness, no CVA tenderness. [] Extremities: No tenderness, no cyanosis, no clubbing, ROM intact, no edema. [] Neurologic: Alert and oriented to self, no focal deficits noted. [] Psychologic: Affect normal, judgement normal, mood normal. [] (NIKOLAS LOWERY APRN) Current Patient Data: Vital Signs: Vital Signs Date Time Temp Pulse Resp B/P (MAP) Pulse Ox O2 Delivery O2 Flow Rate FiO2 05/05/21 19:54 99.0 63 16 144/93 93 Room Air (NIKOLAS LOWERY APRN) EKG: EKG: [] (NIKOLAS LOWERY APRN) Radiology/Procedures: Radiology/Procedures: []XR CHEST 1V History: Altered mental status. Comparison: None. Findings: Low lung volumes. Patchy bibasilar opacities. No pleural effusion. No pneumothorax. Clinic humeral DJD. Impression: 1. Low lung volumes with patchy bibasilar opacities, likely atelectasis. Electronically signed by: Dale Davidson DO (05/05/2021 9:30 PM) [facility] (NIKOLAS LOWERY APRN) Radiology/Procedures: [address] [address] IMAGING REPORT Signed PATIENT: BOBBY MICHAELS ACCOUNT: [id number] : 1930 LOCATION: ER AGE: 89 SEX: M EXAM STATUS: REG ER ORD. PHYSICIAN: NKIOLAS LOWERY APRN REASON: AMS PROCEDURE: CT HEAD WO CONTRAST Exam: CT head INDICATION: Altered mental status TECHNIQUE: Sequential axial images through the head were obtained without the administration of IV contrast. Exposure: One or more of the following in the visualized dose reduction techniques were utilized for this examination: 1. Automated exposure control 2. Adjustment of the MA and/or KV according to patient size 3. Use of iterative of reconstructive technique Comparisons: 04/30/2021 FINDINGS: No focal parenchymal lesion or hemorrhage is identified. There is no midline shift or sulcal effacement. Patchy evidence in the periventricular white matter, similar prior study. No acute vascular territory infarction is identified. Carrillo-white distinction is preserved. The ventricular system is within normal limits without compression hydrocephalus. The basal cisterns are well maintained. The visualized portions of the paranasal sinuses and mastoid air cells are well- pneumatized. No acute fractures. IMPRESSION: No acute intracranial abnormality. Electronically signed by: Jason Up MD (05/05/2021 10:57 PM) [facility] DICTATED AND SIGNED BY: JASON UP MD DATE: 05/05/21 261 CC: KHURRAM CATHERINE MD; NIKOLAS LOWERY APRN; RADHAMES HARRINGTON ~MTH0 [address] [place] [address] IMAGING REPORT Signed PATIENT: BOBBY MICHAELS ACCOUNT: [id number] : 1930 LOCATION: ER AGE: 89 SEX: M EXAM STATUS: PRE ER ORD. PHYSICIAN: NIKOLAS LOWERY APRN REASON: AMS.PT UNABLE TO FOLLOW BREATHING INSTRUCTIONS PROCEDURE: CHEST AP ONLY XR CHEST 1V History: Altered mental status. Comparison: None. Findings: Low lung volumes. Patchy bibasilar opacities. No pleural effusion. No pneumothorax. Clinic humeral DJD. Impression: 1. Low lung volumes with patchy bibasilar opacities, likely atelectasis. Electronically signed by: Dale Davidson DO (05/05/2021 9:30 PM) [facility] DICTATED AND SIGNED BY: DALE DAVIDSON DO DATE: 05/05/212127 CC: NIKOLAS LOWERY APRN; RADHAMES HARRINGTON ~MTH0 0 (KHURRAM CATHERINE MD) Heart Score: C/O Chest Pain: No Risk Factors: Risk Factors: DM, Current or recent (<one month) smoker, HTN, HLP, family history of CAD, obesity. Risk Scores: Score 0 - 3: 2.5% MACE over next 6 weeks - Discharge Home Score 4 - 6: 20.3% MACE over next 6 weeks - Admit for Clinical Observation Score 7 - 10: 72.7% MACE over next 6 weeks - Early Invasive Strategies (NIKOLAS LOWERY APRN) Course & Med Decision Making: Course & Med Decision Making Pertinent Labs and Imaging studies reviewed. (See chart for details) [] 89-year-old male who presents from [place] with altered mental status. called EMS due to patient acting altered. states that patient has had some recent falls and garbled speech in the last couple of days. Patient does have a history of dementia but states that symptoms are worse than normal. Patient is alert to self only. Patient is also on hospice. Chest x-ray shows bibasilar opacities, likely atelectasis. All other labs unremarkable. I spoke with Dr. Monroy regarding admission. Dr. Monroy agreed to admit patient for altered mental status. Transfer of patient care to Dr. Catherine at 215 (NIKOLAS LOWERY APRN) Course & Med Decision Making See Peter report for details prior shift change Pt. admitted to Dr. Monroy Impression: 1. Mental Status Change 2. UTI 3. Hx. Dementia 4. Anemia Hgb= 12.6 (KHURRAM CATHERINE MD) Dragon Disclaimer: Dragon Disclaimer: This electronic medical record was generated, in whole or in part, using a voice recognition dictation system. (NIKOLAS LOWERY APRN) Departure Departure: Impression: Primary Impression: Altered mental status Qualified Codes: R41.82 - Altered mental status, unspecified Disposition: ADMITTED INPATIENT Admitting Physician: Jorden Monroy (NIKOLAS LOWERY APRN) Condition: STABLE Referrals: RADHAMES HARRINGTON (PCP) [place] Disclaimer This chart was dictated in whole or in part using Voice Recognition software in a busy, high-work load, and often noisy Emergency Department environment. It may contain unintended and wholly unrecognized errors or omissions. (KHURRAM CATHERINE MD) Attending Signature Attending Signature I have participated in the care of this patient and I have reviewed and agree with all pertinent clinical information above including history, exam, and recommendations. (KHURRAM CATHERINE MD) NIKOLAS LOWERY APRN May 05, 2021 20:59 KHURRAM CATHERINE MD May 05, 2021 22:25
[2021-05-05 21:21] LABS: BASO % 0 % (0-3); EOS # 0.2 x10^3/uL (0.0-0.7); EOS % 2 % (0-3); HEMATOCRIT 37.8 % (39.0-53.0); HEMOGLOBIN 12.6 g/dL (13.0-17.5); LYMPH # 1.3 x10^3/uL (1.0-4.8); LYMPH % 14 % (24-48); MEAN CORPUSCULAR HEMOGLOBIN 32 pg (25-35); MEAN CORPUSCULAR HGB CONC 33 g/dL (31-37); MEAN CORPUSCULAR VOLUME 94 fL (79-100); MONO % 11 % (0-9); NEUT # 6.9 x10^3uL (1.8-7.7); NEUT % 73 % (31-73); PLATELET COUNT 199 x10^3/uL (140-400); RED BLOOD COUNT 4.01 x10^6/uL (4.30-5.70); RED CELL DISTRIBUTION WIDTH 14.6 % (11.5-14.5); WHITE BLOOD COUNT 9.5 x10^3/uL (4.0-11.0)
--- NOTE | 2021-05-05 21:32 | RAD ---
XR CHEST 1V History: Altered mental status. Comparison: None. Findings: Low lung volumes. Patchy bibasilar opacities. No pleural effusion. No pneumothorax. Clinic humeral MAE Arriola Impression: 1. Low lung volumes with patchy bibasilar opacities, likely atelectasis. Electronically signed by: Dale Davidson DO (05/05/2021 9:30 PM) [facility]
[2021-05-05 21:35] LABS: CALCIUM 8.5 mg/dL (8.5-10.1); CREATININE 1.1 mg/dL (0.7-1.3); GFR 63.2; POTASSIUM 4.1 mmol/L (3.5-5.1)
[2021-05-05 21:41] LABS: ALBUMIN 3.6 g/dL (3.4-5.0); ALBUMIN/GLOBULIN RATIO 1.6 (1.0-1.7); TOTAL BILIRUBIN 0.5 mg/dL (0.2-1.0); TOTAL PROTEIN 5.8 g/dL (6.4-8.2)
[2021-05-05 22:00] LABS: BILIRUBIN,URINE NEG (NEG); CLARITY,URINE HAZY; COLOR,URINE YELLOW; GLUCOSE,URINE NEG (NEG); NITRITE,URINE NEG (NEG)
[2021-05-05 22:07] LABS: BACTERIA,URINE MANY /HPF (0-FEW); SQUAMOUS EPITHELIAL CELL,UR FEW /LPF; WBC,URINE >40 /HPF (0-4)
[2021-05-05 22:08] LABS: GRANULAR CASTS,URINE OCC /HPF; HYALINE CASTS, URINE OCC /HPF
[2021-05-05] MEDS ORDERED: levoFLOXacin 500 MG TABLET ONE (22:23)
[2021-05-05] MEDS ORDERED: ONDANSETRON PF 4 MG/2 ML VIAL. IVP PRN (22:30)
[2021-05-05] MEDS ORDERED: ACETAMINOPHEN 325 MG TABLET PO PRN (22:30)
[2021-05-05] MEDS ORDERED: levoFLOXacin 500 MG TABLET PO ONE (22:30)
--- NOTE | 2021-05-05 22:43 | EKG ---
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
--- NOTE | 2021-05-05 22:59 | RAD ---
Exam: CT head INDICATION: Altered mental status TECHNIQUE: Sequential axial images through the head were obtained without the administration of IV co ntrast. Exposure: One or more of the following in the visualized dose reduction techniques were utilized for this examination: 1. Automated exposure control 2. Adjustment of the MA and/or KV according to patient size 3. Use of iterative of reconstructive technique Comparisons: 04/30/2021 FINDINGS: No focal parenchymal lesion or hemorrhage is identified. There is no midline shift or sulcal effaceme nt. Patchy evidence in the periventricular white matter, similar prior study. No acute vascular territory infarction is identified. Carrillo-white distinction is preserved. The ventricular system is within normal limits without compression hydrocephalus. The basal cisterns are well maintained. The visualized portions of the paranasal sinuses and mastoid air cells are well-pneumatized. No acute fractures. IMPRESSION: No acute intracranial abnormality. Electronically signed by: Jason Quevedo MD (05/05/2021 10:57 PM) [facility]
[2021-05-05 23:47] VITALS: BP 180/91
[2021-05-06] MEDS ORDERED: LORA0.5T21 PO (00:38)
[2021-05-06] MEDS ORDERED: HYOS0.1222 PO (00:38)
[2021-05-06] MEDS ORDERED: MOR20SLSJL SL (00:38)
[2021-05-06] MEDS ORDERED: HALO2TAB PO (00:38)
[2021-05-06] MEDS ORDERED: ONDA4TAB12 PO (00:38)
[2021-05-06] MEDS ORDERED: FLUT16SP21 NS (00:38)
--- NOTE | 2021-05-06 00:48 | NUR ---
The patient, BOBBY MICHAELS, 89 y/o, M admitted by ALTAGRACIA DUNN MD, was given written information regarding hospital policies, unit procedures and contact persons. Patient is a poor historian; health history obtained from chart. Home medications were sent from home with patient. Belongings were checked and left in room.
[2021-05-06] MEDS ORDERED: IPRATRPIUM/ALBUTEROL 0.5/2.5MG 3 ML NEBU. ONE (05:25)
[2021-05-06] MEDS: IPRATRPIUM/ALBUTEROL 0.5/2.5MG 3 ML NEBU. NEB SCH ×4 (05:30→19:37)
[2021-05-06 06:00] VITALS: BP 175/72
[2021-05-06 07:53] VITALS: BP 178/84
[2021-05-06 07:55] LABS: BASO % 1 % (0-3); EOS # 0.2 x10^3/uL (0.0-0.7); EOS % 2 % (0-3); HEMATOCRIT 36.3 % (39.0-53.0); HEMOGLOBIN 12.1 g/dL (13.0-17.5); LYMPH # 1.4 x10^3/uL (1.0-4.8); LYMPH % 17 % (24-48); MEAN CORPUSCULAR HEMOGLOBIN 32 pg (25-35); MEAN CORPUSCULAR HGB CONC 33 g/dL (31-37); MEAN CORPUSCULAR VOLUME 95 fL (79-100); MONO # 0.7 x10^3/uL (0.0-1.1); MONO % 9 % (0-9); NEUT # 5.7 x10^3uL (1.8-7.7); NEUT % 71 % (31-73); PLATELET COUNT 194 x10^3/uL (140-400); RED BLOOD COUNT 3.84 x10^6/uL (4.30-5.70); RED CELL DISTRIBUTION WIDTH 14.6 % (11.5-14.5); WHITE BLOOD COUNT 8.1 x10^3/uL (4.0-11.0)
[2021-05-06 08:04] LABS: CALCIUM 8.1 mg/dL (8.5-10.1); GFR 70.5; POTASSIUM 3.9 mmol/L (3.5-5.1)
[2021-05-06] MEDS ORDERED: ONDANSETRON ODT 4 MG TAB.RAPDIS PO PRN (08:45)
[2021-05-06] MEDS: buPROPion XL 150 MG TAB.ER.24H PO SCH (08:55)
[2021-05-06] MEDS: LORazepam 0.5 MG TABLET PO PRN ×3 (08:55→16:41)
[2021-05-06] MEDS: TAMSULOSIN 0.4 MG CAP.ER.24H. PO SCH ×2 (08:56→21:25)
[2021-05-06] MEDS: OMEGA-3 FATTY ACIDS/FISH OIL 1,000 MG CAPSULE. PO SCH ×2 (08:56→09:00)
[2021-05-06] MEDS: LACTOBACILLUS RHAMNOSUS GG 1 CAPSULE. PO SCH ×2 (08:56→21:25)
[2021-05-06] MEDS: FLUTICASONE 50MCG/NASAL SPRAY 16GM BOTTLE. NS SCH (08:56)
[2021-05-06] MEDS: SERTRALINE 100 MG TABLET. PO SCH (08:56)
[2021-05-06] MEDS: MULTIVITAMIN with MINERAL TABLET. PO SCH ×2 (08:56→09:00)
[2021-05-06] MEDS: CIPROFLOXACIN HCL 500 MG TABLET PO SCH ×2 (08:56→21:25)
[2021-05-06] MEDS: CALCIUM CARB/VIT D3 500/200 TABLET PO SCH ×2 (08:58→09:00)
--- NOTE | 2021-05-06 09:51 | NUR ---
Patient is alert, oriented to self. Impulsive, getting out of bed, agitated and RN unable to understand what patient is upset with. Pt did calm down after breakfast. Ativan also given to help calm patient. Pt is very unsteady. Medications locked in pharmacy. RN spoke with [facility]. Pt is on hospice due to increase in dementia. According to [facility], [facility] but failed, so sent home with HH and failed that due to non-compliancy and was therefore put on hospice. Pt having frequent falls, allegedly believed that she could send patient straight to [facility] for admission with hospice there as patient is now requiring more care.
--- NOTE | 2021-05-06 14:35 | HP ---
HISTORY OF PRESENT ILLNESS: The patient is an 89-year-old male patient who presented from [facility]. Apparently, his called EMS and stated that he was acting weird than normal in the last couple of days, he has fallen a few times and is mumbling with his speech. The patient is alert to self. The patient has a history of dementia and insomnia. Apparently, he was on hospice; however, he was extensively investigated in the Emergency Room and has had lab work and chest x-ray and his lab work showed that his white cell count is normal. His chemistry was also normal. His urinalysis showed that he has more than 40 wbc's and too many bacteria. His chest x-ray showed low lung volumes with patchy bibasilar opacities, likely atelectasis. CT scan of the head showed no acute intracranial abnormality. The patient was admitted with altered mental status, worsening dementia as well as urinary tract infection. He apparently was started on levofloxacin and continued all his other medication, was admitted to consult health social work professor also for placement in a probably long-term care facility as the patient is extremely demented and his is unable to take care of him anymore. PAST MEDICAL HISTORY: Significant for dementia, hyperlipidemia, benign prostatic hypertrophy, depression, anxiety as well as insomnia. PAST SURGICAL HISTORY: Significant for bilateral cataract extraction as well as hemorrhoidectomy. ALLERGIES: He is allergic to PENICILLIN. FAMILY HISTORY: Noncontributory. SOCIAL HISTORY: He is , lives with his . He does not smoke, drink alcohol or use recreational drugs. MEDICATIONS: He is currently on Hyoscyamine sulfate 0.125 mg every 8 hours as needed, tamsulosin 0.4 mg twice a day, omega 3 fatty acid 1 capsule once a day, morphine sulfate solution concentrate 20 mg per 1 mL solution, Roxanol 20 mg sublingually every 2 hours as needed. He is on Wellbutrin 150 mg per day, sertraline 100 mg daily, haloperidol 2 mg at bedtime, lorazepam 0.5 mg every 4 hours as needed, calcium carbonate with vitamin D one tablet once a day, fluticasone propionate, Flonase 2 sprays to each nostril once a day, ____ for fiber 350 mg daily, ondansetron 4 mg every 8 hours as needed, multivitamin with mineral 1 tablet once a day. PHYSICAL EXAMINATION: GENERAL: On arrival to the Emergency Room, the patient was somewhat confused; however, he was well nourished, well developed, in no acute distress. There was no pallor, jaundice, cyanosis, no lymphadenopathy, no thyromegaly, no jugular venous distention. No limb edema. VITAL SIGNS: His heart rate was 63, blood pressure 144/93, temperature was 99, respiratory rate was 16 and oxygen saturation was 93% on room air. HEAD, EYES, EARS, NOSE, AND THROAT: Showed normocephalic, atraumatic. NECK: Supple. HEART: Normal first and second heart sounds, no gallop or murmur. CHEST: Clear to auscultation, no crepitation or rhonchi. ABDOMEN: Distended, soft, nontender. NEUROLOGIC: He is demented, but without any obvious lateralizing sign. LABORATORY DATA: Showed white cell count 9500, hemoglobin 12.6, hematocrit 38, MCV 94 and platelet count ____. His chemistry showed serum sodium 143, potassium 4.1, chloride 108, bicarbonate 25, anion gap of 10, BUN 20, creatinine 1.1. Estimated GFR was 63 mL per minute. His glucose was 82, calcium was 8.5. Total bilirubin, AST, ALT, alkaline phosphatase were normal. Total protein was 5.8, albumin was 3.6. His urinalysis showed the urine was yellow, hazy with a pH of 6.5, specific gravity 1.025. The urine was negative for protein, glucose, ketones, blood, nitrite, and ____. There was moderate amount of leukocyte esterase, 3-5 rbc's, more than 40 wbc's and many bacteria. His urine was sent for culture and sensitivity, the result is still pending. His CT scan of the head showed there are no acute intracranial abnormalities and a chest x-ray showed that the patient has low lung volumes with patchy bibasilar opacities, likely atelectasis. ASSESSMENT AND PLAN: The patient was admitted with altered mental status, worsening dementia, urinary tract infection. The patient was continued on his ciprofloxacin 500 mg twice a day. He is ALLERGIC TO PENICILLIN. Continue with all his medication. We will follow him closely and consulted the health social work professor for placement in a long-term care facility. CHUCK/JEANNINE/ROB DR: Mely TID: [id number]
--- NOTE | 2021-05-06 17:18 | NUR ---
Nursing note Pt is very confused and forgetful. pt is impulsive and agitated and appears unsteady on his feet
[2021-05-06] MEDS: HALOPERIDOL 2 MG TABLET PO SCH (21:25)
--- NOTE | 2021-05-06 21:29 | PN ---
DATE: 05/06/2021 SUBJECTIVE: The patient is resting, slightly propped up in bed, no apparent distress, extremely confused, very impulsive, agitated at times to get out of the bed, has what seemed to be apraxia for a lot of things, even getting into the bed or use a spoon. He mumbles with almost flight of ideas, but it is difficult to understand. PHYSICAL EXAMINATION: GENERAL: However, when I examined him, he looked well and was clearly in no apparent respiratory distress. No pallor, jaundice, cyanosis or thyromegaly. No jugular venous distention. No limb edema. VITAL SIGNS: His heart rate was 59, blood pressure is 180/91, temperature was 98, respiratory rate was 18 and oxygen saturation was 94%. HEAD, EYES, EARS, NOSE, AND THROAT: Normocephalic, atraumatic. NECK: Supple. HEART: Normal first and second heart sounds, no gallop or murmur. CHEST: Clear to auscultation, no crepitation or rhonchi. ABDOMEN: Distended, soft, nontender. NEUROLOGIC: He was extremely demented without any obvious lateralizing sign. LABORATORY DATA: His lab work this morning showed a white cell count of 8000, hemoglobin 12, hematocrit 36, MCV 95 and platelet count of 194,000 with normal manual differential. His chemistry showed a serum sodium 144, potassium 3.9, chloride 109, bicarbonate 26, anion gap of 9, BUN 18, creatinine 1, estimated GFR was 70 mL per minute. His glucose was 81 and calcium was 8.1. ASSESSMENT: 1. Altered mental status. 2. Urinary tract infection. 3. The patient has advanced dementia and was actually on hospice for what seemed to be cerebral atherosclerosis. 4. Other medical problems include benign prostatic hypertrophy, hyperlipidemia, depression, anxiety and insomnia. PLAN: We will continue with all his medication. Continue with oral ciprofloxacin. JOSE DR: Mely TID: [id number]
[2021-05-06 21:39] VITALS: BP 143/97
[2021-05-07] MEDS: IPRATRPIUM/ALBUTEROL 0.5/2.5MG 3 ML NEBU. NEB SCH (04:38)
[2021-05-07 06:29] VITALS: BP 151/79
[2021-05-07] MEDS: FLUTICASONE 50MCG/NASAL SPRAY 16GM BOTTLE. NS SCH (09:00)
[2021-05-07] MEDS: OMEGA-3 FATTY ACIDS/FISH OIL 1,000 MG CAPSULE. PO SCH (09:38)
[2021-05-07] MEDS: CALCIUM CARB/VIT D3 500/200 TABLET PO SCH (09:39)
[2021-05-07] MEDS: LACTOBACILLUS RHAMNOSUS GG 1 CAPSULE. PO SCH ×2 (09:39→21:41)
[2021-05-07] MEDS: MULTIVITAMIN with MINERAL TABLET. PO SCH (09:39)
[2021-05-07] MEDS: CIPROFLOXACIN HCL 500 MG TABLET PO SCH ×2 (09:39→21:41)
[2021-05-07] MEDS: buPROPion XL 150 MG TAB.ER.24H PO SCH (09:39)
[2021-05-07] MEDS: TAMSULOSIN 0.4 MG CAP.ER.24H. PO SCH ×2 (09:39→21:41)
[2021-05-07] MEDS: SERTRALINE 100 MG TABLET. PO SCH (09:39)
[2021-05-07 11:15] VITALS: BP 152/71
[2021-05-07 15:50] VITALS: BP 104/69
[2021-05-07 19:00] VITALS: BP 111/71
--- NOTE | 2021-05-07 20:59 | PN ---
DATE: 05/07/2021 SUBJECTIVE: The patient is resting, slightly propped up in bed, sleeping comfortably, in no apparent respiratory distress. Nursing staff did not voice any concern and stated that he had an uneventful night. He apparently did not ate his breakfast this morning. When I examined him this morning, he was sleepy, but arousable. Denied any complaint. OBJECTIVE: GENERAL: When I examined him, he looked well and was clearly in no apparent respiratory distress. No pallor, jaundice, cyanosis, or thyromegaly. No jugular venous distention. No limb edema. VITAL SIGNS: His heart rate was 75, blood pressure is 151/79, temperature 97.8, respiratory rate was 18 and oxygen saturation was 90% on room air. The rest of clinical exam is stable. His intake and output are incompletely recorded. LABORATORY DATA: As of yesterday, his white cell count was 8000, hemoglobin 12, hematocrit 36, MCV 95 and platelet count of 194,000. Serum sodium 144, potassium 3.9, chloride 109, bicarbonate 26, anion gap of 9, BUN 18, creatinine 1, estimated GFR was 70 mL per minute. His glucose was 81, calcium was 8.1. Urinalysis showed that he has more than 40 wbc's. Urine culture is still pending at the time of this dictation. ASSESSMENT: 1. Altered mental status. 2. Urinary tract infection. 3. The patient has advanced dementia. He is on hospice for what seemed to be cerebral atherosclerosis. 4. Other medical problems include: A. Benign prostatic hypertrophy. B. Hyperlipidemia. C. Depression, anxiety. D. Insomnia. PLAN: To continue his current medication. Continue with oral ciprofloxacin. Await the results of the urine culture and sensitivity. The patient probably needs to be in a long-term care facility as his is unable to take care of him. SURYA DR: Mely TID: [id number]
[2021-05-07] MEDS: HALOPERIDOL 2 MG TABLET PO SCH (21:41)
[2021-05-07] MEDS: LORazepam 0.5 MG TABLET PO PRN (23:45)
[2021-05-08 05:36] VITALS: BP 152/77
[2021-05-08] MEDS: FLUTICASONE 50MCG/NASAL SPRAY 16GM BOTTLE. NS SCH (09:00)
[2021-05-08] MEDS: LORazepam 0.5 MG TABLET PO PRN (09:05)
[2021-05-08] MEDS: LACTOBACILLUS RHAMNOSUS GG 1 CAPSULE. PO SCH ×2 (09:05→21:09)
[2021-05-08] MEDS: TAMSULOSIN 0.4 MG CAP.ER.24H. PO SCH ×2 (09:05→21:08)
[2021-05-08] MEDS: SERTRALINE 100 MG TABLET. PO SCH (09:05)
[2021-05-08] MEDS: MULTIVITAMIN with MINERAL TABLET. PO SCH (09:05)
[2021-05-08] MEDS: buPROPion XL 150 MG TAB.ER.24H PO SCH (09:05)
[2021-05-08] MEDS: CIPROFLOXACIN HCL 500 MG TABLET PO SCH ×2 (09:06→21:09)
[2021-05-08] MEDS: OMEGA-3 FATTY ACIDS/FISH OIL 1,000 MG CAPSULE. PO SCH (09:06)
[2021-05-08] MEDS: CALCIUM CARB/VIT D3 500/200 TABLET PO SCH (09:06)
[2021-05-08 11:18] VITALS: BP 149/81
[2021-05-08 14:49] VITALS: BP 148/80
[2021-05-08 20:30] VITALS: BP 128/73
[2021-05-08] MEDS: HALOPERIDOL 2 MG TABLET PO SCH (21:09)
--- NOTE | 2021-05-08 23:00 | PN ---
DATE: 05/08/2021 SUBJECTIVE: The patient continued to be sundowning and up and about, attempted to get out of the bed and has been very restless and agitated. He was given Haldol and Ativan last night and by the time I saw him this morning, he was in deep sleep. OBJECTIVE: GENERAL: When I examined him, he was pale, but no jaundice, cyanosis or thyromegaly. No jugular venous pressure. No limb edema. VITAL SIGNS: His heart rate was 55, blood pressure is 149/81, temperature was 97.6, respiratory rate was 18 and oxygen saturation was 94% on room air. HEAD, EYES, EARS, NOSE, AND THROAT: Normocephalic, atraumatic. NECK: Supple. HEART: Showed normal first and second heart sounds, no gallop or murmur. CHEST: Clear to auscultation. No crepitation or rhonchi. ABDOMEN: Distended, soft, nontender. NEUROLOGIC: He was demented without any obvious lateralizing sign, although he has marked muscle wasting and weakness. He is very unsteady on his feet. LABORATORY DATA: Still pending at the time of this dictation. His urine culture has grown more than 100,000 colony forming units per mL of gram-positive cocci identified as Aerococcus urinae. ASSESSMENT: 1. Altered mental status. 2. Urinary tract infection, for which he is on ciprofloxacin. 3. The patient has advanced dementia. He is on hospice for what seemed to be cerebral atherosclerosis. 4. Other medical problems include: A. Benign prostatic hypertrophy. B. Hyperlipidemia. C. Depression and anxiety. D. Insomnia. PLAN: To continue with current medication. Continue with oral ciprofloxacin. His ____ urine culture is growing Aerococcus urinae. I will contact the lab at [facility] to find out sensitivity and hopefully, he can be discharged home to a snf facility as his is unable to take care of him at the [facility]. CHUCK/AYM/JOSE BUTCHER: Mely TID: [id number]
[2021-05-08 23:05] VITALS: BP 112/73
[2021-05-09 06:29] VITALS: BP 140/80
[2021-05-09 07:04] LABS: ALBUMIN 3.2 g/dL (3.4-5.0); ALBUMIN/GLOBULIN RATIO 1.2 (1.0-1.7); CALCIUM 8.4 mg/dL (8.5-10.1); CREATININE 0.9 mg/dL (0.7-1.3); GFR 79.6; POTASSIUM 3.8 mmol/L (3.5-5.1); TOTAL BILIRUBIN 0.8 mg/dL (0.2-1.0); TOTAL PROTEIN 5.8 g/dL (6.4-8.2)
[2021-05-09 07:05] LABS: HEMATOCRIT 39.4 % (39.0-53.0); HEMOGLOBIN 13.5 g/dL (13.0-17.5); RED BLOOD COUNT 4.2 x10^6/uL (4.30-5.70); RED CELL DISTRIBUTION WIDTH 14.5 % (11.5-14.5); WHITE BLOOD COUNT 10.9 x10^3/uL (4.0-11.0)
[2021-05-09] MEDS: MULTIVITAMIN with MINERAL TABLET. PO SCH (09:00)
[2021-05-09] MEDS: FLUTICASONE 50MCG/NASAL SPRAY 16GM BOTTLE. NS SCH (09:00)
[2021-05-09] MEDS: LACTOBACILLUS RHAMNOSUS GG 1 CAPSULE. PO SCH ×2 (11:33→20:26)
[2021-05-09] MEDS: TAMSULOSIN 0.4 MG CAP.ER.24H. PO SCH ×2 (11:33→20:26)
[2021-05-09] MEDS: buPROPion XL 150 MG TAB.ER.24H PO SCH (11:33)
[2021-05-09] MEDS: CALCIUM CARB/VIT D3 500/200 TABLET PO SCH (11:34)
[2021-05-09] MEDS: LORazepam 0.5 MG TABLET PO PRN (11:34)
[2021-05-09] MEDS: SERTRALINE 100 MG TABLET. PO SCH (11:34)
[2021-05-09] MEDS: CIPROFLOXACIN HCL 500 MG TABLET PO SCH ×2 (11:34→20:26)
[2021-05-09] MEDS: OMEGA-3 FATTY ACIDS/FISH OIL 1,000 MG CAPSULE. PO SCH (11:34)
[2021-05-09 11:45] VITALS: BP 106/72
[2021-05-09 15:29] VITALS: BP 117/67
[2021-05-09 18:26] VITALS: BP 110/75
[2021-05-09] MEDS: HALOPERIDOL 2 MG TABLET PO SCH (20:26)
--- NOTE | 2021-05-09 21:22 | PN ---
DATE: 05/09/2021 SUBJECTIVE: The patient is resting, slightly up in bed, in no apparent respiratory distress. He continued to be agitated at times, attempts to get out of the bed, is very unsteady on his feet, and is a very high fall risk. He is obviously very confused and disoriented and does not give any useful information. OBJECTIVE: GENERAL: When I examined him, he looked pale, cachectic, but no jaundice, cyanosis or thyromegaly. No jugular venous distention. No limb edema. VITAL SIGNS: His heart rate was 80, blood pressure is 106/72, temperature 97.2, respiratory rate 20, and oxygen saturation was 95% on room air. HEAD, EYES, EARS, NOSE, AND THROAT: Normocephalic, atraumatic. NECK: Supple. HEART: Showed normal first and second heart sounds, no gallop or murmur. CHEST: Clear to auscultation, no crepitation or rhonchi. ABDOMEN: Scaphoid, soft, nontender. NEUROLOGIC: He is demented, but without any obvious lateralizing sign. All his cranial nerves intact. He moves extremities without difficulty; however, he is extremely unsteady on his feet. INTAKE AND OUTPUT: His intake is 540. No output was recorded as he is incontinent. LABORATORY DATA: This morning showed a white cell count of 10,900, hemoglobin 13.5, hematocrit 39, MCV 94 and platelet count of 218,000. Serum sodium was 139, potassium 3.8, chloride 105, bicarbonate 27, anion gap of 7, BUN 18, creatinine 0.9. Estimated GFR was 79 mL per minute. His glucose 94, calcium was 8.4. Total bilirubin, AST, ALT, alkaline phosphatase were normal. Total protein 5.8, albumin was 3.2. His urine culture has grown Aerococcus urinae and is sensitive to ciprofloxacin. PLAN: The patient's plan is to obviously continue with all his current medication. Our manager social responsibility is working to admit him to [facility]. TRINITY DR: Mely TID: [id number]
--- NOTE | 2021-05-10 05:27 | NUR ---
Pt laid awake in bed much of the night, talking to self. Occasionally tried to throw legs over bed rails but easily redirected. Cooperative with brief changes.
[2021-05-10] MEDS: CALCIUM CARB/VIT D3 500/200 TABLET PO SCH (07:06)
[2021-05-10] MEDS: buPROPion XL 150 MG TAB.ER.24H PO SCH (07:06)
[2021-05-10] MEDS: CIPROFLOXACIN HCL 500 MG TABLET PO SCH (07:06)
[2021-05-10] MEDS: TAMSULOSIN 0.4 MG CAP.ER.24H. PO SCH (07:06)
[2021-05-10] MEDS: LACTOBACILLUS RHAMNOSUS GG 1 CAPSULE. PO SCH (07:06)
[2021-05-10] MEDS: MULTIVITAMIN with MINERAL TABLET. PO SCH (07:06)
[2021-05-10] MEDS: SERTRALINE 100 MG TABLET. PO SCH (07:07)
[2021-05-10] MEDS: OMEGA-3 FATTY ACIDS/FISH OIL 1,000 MG CAPSULE. PO SCH (07:08)
--- NOTE | 2021-05-10 10:29 | DS ---
DATE OF DISCHARGE: 05/10/2021 ATTENDING PHYSICIAN: Dr. Dunn. FINAL DISCHARGE DIAGNOSES: 1. Altered mentation, resolved. 2. Profound dementia, longstanding. 3. Chronic back pain. 4. Confusion and fall. 5. History of prostatism. HISTORY: The patient is an 89-year-old gentleman. DICTATION ENDS HERE. SONY/SONU DR: Carleen TID: [id number] CC: ALTAGRACIA DUNN MD
[2021-05-10 10:44] VITALS: BP 112/68
--- NOTE | 2021-05-10 11:50 | NUR ---
Report callled to wing at [facility] at 0920 pt discharged at 1149 via ems.
--- NOTE | 2021-05-10 11:56 | DS ---
DATE OF DISCHARGE: 05/10/2021 ATTENDING PHYSICIAN: Dr. Dunn. FINAL DISCHARGE DIAGNOSES: 1. Altered mentation, resolved. 2. Profound dementia. 3. Degenerative arthritis. 4. History of prostatism. 5. Chronic low back pain. HISTORY OF PRESENT ILLNESS: The patient is an 89-year-old gentleman who has been living in independent living at [facility] with his . He became quite agitated, confused and his could not manage him. He was admitted with altered mentation and eventual transfer to a higher level of care. PHYSICAL EXAMINATION: Please see the dictated note. PERTINENT LABORATORY AND X-RAY STUDIES: Admission hemoglobin was 12.6 g/dL with a white count of 9500. Electrolytes within normal range. Nonfasting blood sugar was 82, creatinine is 1.1 mg percent. Urinalysis was clear. The obligatory CT of the head showed no parenchymal lesion or hemorrhage, periventricular matter, nonspecific changes. There is no hydrocephalus. There is age-related atrophy. COURSE IN THE HOSPITAL: The patient was admitted. Home meds were reviewed. Intermittent Haldol was administered. He did well. Diet was advanced. He remains profoundly confused. On the fifth hospital day, arrangements were then made for the patient to be admitted to the inpatient detention side at [facility]. His discharge meds will be basically unchanged. He will continue his calcium, Cipro 500 mg b.i.d. for 7 more days, fluticasone nasal spray, Haldol p.r.n., lactobacillus, multivitamin, omega 3 fish oil, Zoloft 100 mg daily, Flomax 0.4 mg daily, Wellbutrin 150 mg b.i.d. His prognosis is guarded. He remains a FULL CODE. Code status will be ascertained upon admission to [facility]. The patient was then discharged from our hospital in stable condition with explicit drug and followup care. Total discharge time is 39 minutes. SONY/CLINTON DR: SONY/cecile TID: [id number] CC: ALTAGRACIA DUNN MD
== END 2021-05-10 11:51 | DRG 690 ==
LOC: ER 19:40 → 1 SOUTH 22:20
PROVIDERS: ADMIT Internal Medicine; ATTEND Internal Medicine
DX: N39.0 Urinary tract infection, site not specified (principal); F05 Delirium due to known physiological condition; J98.11 Atelectasis; F03.90 Unspecified dementia, unspecified severity, without behavioral disturbance, psychotic disturbance, mood disturbance, and anxiety; M19.90 Unspecified osteoarthritis, unspecified site; N40.0 Benign prostatic hyperplasia without lower urinary tract symptoms; G89.29 Other chronic pain; M54.5 Low back pain; E78.5 Hyperlipidemia, unspecified; F32.9 Major depressive disorder, single episode, unspecified; D64.9 Anemia, unspecified; F41.9 Anxiety disorder, unspecified; G47.00 Insomnia, unspecified; I67.2 Cerebral atherosclerosis; R29.6 Repeated falls; Z79.899 Other long term (current) drug therapy; Z87.891 Personal history of nicotine dependence; Z88.0 Allergy status to penicillin; Z98.41 Cataract extraction status, right eye; Z98.42 Cataract extraction status, left eye
CPT/HCPCS: 36415; 70450; 71045; 80048; 80053; 81001; 83605; 85025; 85027; 87077; 87086; 93005; 94640; 99285-25

== ENCOUNTER 2021-05-11 17:41 | Emergency (ER) | payer MEDICARE ==
[~2021-05-11] VITALS: Ht 170.2 cm; Wt 58.1 kg
[~2021-05-11 17:41] MED LIST changes: +FLUT16SP21 NS; +HALO2TAB PO; +HYOS0.1222 PO; +LORA0.5T21 PO; +MOR20SLSJL SL; +ONDA4TAB12 PO
[2021-05-11 17:47] VITALS: BP 155/86
--- NOTE | 2021-05-11 18:16 | PHYS DOC ---
Past History Past Medical History: Anxiety, Arthritis, Dementia Additional Past Medical Histor: BPH, insomnia (JONAS MACIAS APRN) Past Surgical History: No Surgical History (JONAS MACIAS APRN) Smoking: Quit Greater Than 1 Year Alcohol Use: None Drug Use: None (JONAS MACIAS APRN) General Adult EDM: Chief Complaint: MECHANICAL FALL HPI: HPI: Patient is an 89-year-old male who presents to the ER from [facility] following an unwitnessed fall. Patient is only alert to self which is his baseline mental status. Due to this he is unable to answer triage questions. Patient is unsure of how he fell. He did hit his head as he has a skin tear and hematoma noted to the right side of his head but he is unsure what he hit his head on. Patient is not on any blood thinners, it is unknown if he had a loss of consciousness. Patient denies neck, back pain vision changes, nausea or vomiting. Patient currently in c-collar. (JONAS MACIAS APRN) Review of Systems: Review of Systems: 14 body systems of the review of systems have been reviewed. See HPI for pertinent positive and negative responses, otherwise all other systems are negative, nonpertinent or noncontributory (JONAS MACIAS APRN) Allergies: Allergies: Allergies Coded Allergies Type Severity Reaction Last Updated Verified Penicillins Allergy Intermediate extremity swelling 04/25/14 Yes (JONAS MACIAS APRN) Physical Exam: PE: Constitutional: Well developed, well nourished, no acute distress, non-toxic appearance. [] HENT: Normocephalic, patient has 3 cm superficial superficial skin tear noted to the right side of his head, 4 cm hematoma noted to the right side of his head Eyes: PERRLA, EOMI, conjunctiva normal, no discharge. [] Neck: No stridor, neck in c-collar, no bony spinal tenderness Cardiovascular:Heart rate regular rhythm, no murmur [] Lungs & Thorax: Bilateral breath sounds clear to auscultation [] Abdomen: Bowel sounds normal, soft, no tenderness, no masses, no pulsatile masses. [] Skin: Warm, dry, no erythema, no rash. [] Back: No tendernes Extremities: No tenderness, no cyanosis, no clubbing, ROM intact, no edema. [] Neurologic: Alert and oriented X 1, normal motor function, normal sensory function, no focal deficits noted. [] Psychologic: Affect normal, judgement normal, mood normal. [] (JONAS MACIAS APRN) Current Patient Data: Vital Signs: Vital Signs Date Time Temp Pulse Resp B/P (MAP) Pulse Ox O2 Delivery O2 Flow Rate FiO2 05/11/21 17:47 65 16 155/86 95 (JONAS MACIAS APRN) EKG: EKG: [] (JONAS MACIAS APRN) Radiology/Procedures: Radiology/Procedures: PROCEDURE: CT HEAD AND CERVICAL SPINE WO EXAMINATION: CT HEAD AND C-SPINE WO CLINICAL HISTORY: Fall TECHNIQUE: Serial axial images without IV contrast were obtained from the vertex to the foramen magnum. CT of the cervical spine without IV contrast. Spiral, high resolution axial images were obtained from the skull base to the cervicothoracic junction with sagittal and coronal planar reconstructions. CT Dose Reduction Employed: One or more of the following individualized dose reduction techniques were utilized for this examination: 1. Automated exposure control 2. Adjustment of the mA and/or kV according to patient size 3. Use of iterative reconstruction technique. COMPARISON: 05/05/2021 FINDINGS: BRAIN: Acute Change: No evidence of an acute contusion or other acute parenchymal process. Hemorrhage: No evidence of acute intracranial hemorrhage. Mass Lesion/Mass Effect: No evidence of intracranial mass or extraaxial fluid collection. No significant mass effect. Chronic Change: Patchy hypoattenuation in the supratentorial white matter, nonspecific but likely represents moderate microvascular ischemia. Atherosclerotic calcification of the anterior and posterior circulation. Parenchyma: Moderate generalized volume loss. Ventricles: Ventricular enlargement concordant with degree of parenchymal volume loss. Paranasal Sinuses and Skull Base: Visualized paranasal sinuses clear. No evidence of acute calvarial fracture. C-SPINE: Alignment: Normal anatomic alignment. Osseous Structures: No evidence of acute fracture or spondylolisthesis. Degenerative Changes: Moderate to severe multilevel degenerative disc disease and neural foraminal narrowing. Mild osseous spinal stenosis at C3-4. Marked multilevel facet arthropathy. Atlantodental degenerative changes. Cervical Soft Tissues: No prevertebral soft tissue swelling. Biapical emphysematous changes. IMPRESSION: BRAIN: No evidence of acute intracranial abnormality or significant interval change. C-SPINE: No evidence of acute osseous abnormality involving the cervical spine. Multilevel degenerative findings as described. Electronically signed by: Austyn Slaughter DO (05/11/2021 6:39 PM) [facility] (JONAS MACIAS APRN) Heart Score: C/O Chest Pain: No Risk Factors: Risk Factors: DM, Current or recent (<one month) smoker, HTN, HLP, family history of CAD, obesity. Risk Scores: Score 0 - 3: 2.5% MACE over next 6 weeks - Discharge Home Score 4 - 6: 20.3% MACE over next 6 weeks - Admit for Clinical Observation Score 7 - 10: 72.7% MACE over next 6 weeks - Early Invasive Strategies (JONAS MACIAS APRN) Course & Med Decision Making: Course & Med Decision Making Pertinent Labs and Imaging studies reviewed. (See chart for details) Patient is a 89-year-old male came into the ER today for fall from [facility]. CT scan of his head and neck was performed which showed no acute findings. Skin tear was glued with Dermabond patient tolerated procedure, wound edges well approximated.. C-collar cleared. Patient to be discharged back to [facility] (JONAS MACIAS APRN) Dragon Disclaimer: Dragon Disclaimer: This electronic medical record was generated, in whole or in part, using a voice recognition dictation system. (JONAS MACIAS APRN) Departure Departure: Impression: Primary Impression: Fall Qualified Codes: W19.XXXA - Unspecified fall, initial encounter Disposition: 01 HOME / SELF CARE / HOMELESS Condition: STABLE Referrals: RADHAMES HARRINGTON (PCP) Patient Instructions: Fall Prevention and Home Safety, [id number] Additional Instructions: You were seen in the ER today following a fall we did a CT scan of your head and neck that showed no fractures. You can take Tylenol or ibuprofen if you tolerate those medications for pain, the laceration on your head was with skin glue. Please monitor for signs of infection such as redness, warmth, swelling, drainage. Please notify your primary care provider today about your ER visit. If you develop numbness, tingling, weakness, worsening of pain, nausea, vomiting, dizziness, chest pain please return to the ER. Attending Signature Attending Signature I have participated in the care of this patient and I have reviewed and agree with all pertinent clinical information above including history, exam, and recommendations. (KHURRAM CHRIS MD) JONAS MACIAS APRN May 11, 2021 18:16 KHURRAM CHRIS MD May 12, 2021 18:36
--- NOTE | 2021-05-11 18:41 | RAD ---
EXAMINATION: CT HEAD AND C-SPINE WO CLINICAL HISTORY: Fall TECHNIQUE: Serial axial images without IV contrast were obtained from the vertex to the foramen magnum. CT of the cervical spine without IV contrast. Spiral, high resolution axial images were obtained from the skull base to the cervicothoracic junction with sagittal and coronal planar reconstructions. CT Dose Reduction Employed: One or more of the following individualized dose reduction techniques wer e utilized for this examination: 1. Automated exposure control 2. Adjustment of the mA and/or kV ac cording to patient size 3. Use of iterative reconstruction technique. COMPARISON: 05/05/2021 FINDINGS: BRAIN: Acute Change: No evidence of an acute contusion or other acute parenchymal process. Hemorrhage: No evidence of acute intracranial hemorrhage. Mass Lesion/Mass Effect: No evidence of intracranial mass or extraaxial fluid collection. No signific ant mass effect. Chronic Change: Patchy hypoattenuation in the supratentorial white matter, nonspecific but likely rep resents moderate microvascular ischemia. Atherosclerotic calcification of the anterior and posterior circulation. Parenchyma: Moderate generalized volume loss. Ventricles: Ventricular enlargement concordant with degree of parenchymal volume loss. Paranasal Sinuses and Skull Base: Visualized paranasal sinuses clear. No evidence of acute calvarial fracture. C-SPINE: Alignment: Normal anatomic alignment. Osseous Structures: No evidence of acute fracture or spondylolisthesis. Degenerative Changes: Moderate to severe multilevel degenerative disc disease and neural foraminal na rrowing. Mild osseous spinal stenosis at C3-4. Marked multilevel facet arthropathy. Atlantodental deg enerative changes. Cervical Soft Tissues: No prevertebral soft tissue swelling. Biapical emphysematous changes. IMPRESSION: BRAIN: No evidence of acute intracranial abnormality or significant interval change. C-SPINE: No evidence of acute osseous abnormality involving the cervical spine. Multilevel degenerative findings as described. Electronically signed by: Austyn Slaughter DO (05/11/2021 6:39 PM) [facility]
== END 2021-05-11 19:32 | disposition home or self-care (01) ==
LOC: ER 17:41
DX: S01.81XA Laceration without foreign body of other part of head, initial encounter (principal); Z88.0 Allergy status to penicillin; F41.9 Anxiety disorder, unspecified; M19.90 Unspecified osteoarthritis, unspecified site; F03.90 Unspecified dementia, unspecified severity, without behavioral disturbance, psychotic disturbance, mood disturbance, and anxiety; Z87.891 Personal history of nicotine dependence; W18.39XA Other fall on same level, initial encounter; Y93.89 Activity, other specified; Y92.89 Other specified places as the place of occurrence of the external cause; Y99.8 Other external cause status
CPT/HCPCS: 12013; 70450; 72125; 99285-25

== ENCOUNTER 2021-07-08 08:18 | Emergency (ER) | payer MEDICARE ==
[~2021-07-08] VITALS: Ht 177.8 cm; Wt 60.3 kg
--- NOTE | 2021-07-08 09:02 | PHYS DOC ---
Past History Past Medical History: Anxiety, Arthritis, Dementia Additional Past Medical Histor: BPH, insomnia Past Surgical History: No Surgical History Smoking: Quit Greater Than 1 Year Alcohol Use: None Drug Use: None General Adult EDM: Chief Complaint: MECHANICAL FALL HPI: HPI: 89-year-old male presents from the [facility] due to a fall. The patient has dementia at baseline and does not remember what happened. He knows that he has a cut on his hand. He denies any other pain or injuries. The patient was reported to be found on the ground in his room. Review of Systems: Review of Systems: Constitutional: Denies fever or chills Eyes: Denies change in visual acuity HENT: Denies nasal congestion or sore throat Respiratory: Denies cough or shortness of breath Cardiovascular: Denies chest pain or edema GI: Denies abdominal pain, nausea, vomiting, bloody stools or diarrhea : Denies dysuria Musculoskeletal: Denies back pain or joint pain Integument: forehead laceration Neurologic: Denies headache, focal weakness or sensory changes Endocrine: Denies polyuria or polydipsia Lymphatic: Denies swollen glands Psychiatric: Denies depression or anxiety Allergies: Allergies: Allergies Coded Allergies Type Severity Reaction Last Updated Verified Penicillins Allergy Intermediate extremity swelling 04/25/14 Yes Physical Exam: PE: Constitutional: Well developed, well nourished, no acute distress, non-toxic appearance. [] HENT: Normocephalic, atraumatic, bilateral external ears normal, oropharynx moist, no oral exudates, nose normal. [] Eyes: PERRLA, EOMI, conjunctiva normal, no discharge. [] Neck: Normal range of motion, no tenderness, supple, no stridor. [] Cardiovascular: Heart rate 50, regular rhythm, no murmur [] Lungs & Thorax: Bilateral breath sounds clear to auscultation [] Abdomen: Bowel sounds normal, soft, no tenderness, no masses, no pulsatile masses. [] Skin: 2.5x2.5cm stellate laceration of forehead.[] Back: No tenderness, no CVA tenderness. [] Extremities: No tenderness, no cyanosis, no clubbing, ROM intact, no edema. [] Neurologic: Alert and oriented X 3, normal motor function, normal sensory function, no focal deficits noted. [] Psychologic: Affect normal, judgement normal, mood normal. [] Current Patient Data: Vital Signs: Vital Signs Date Time Temp Pulse Resp B/P (MAP) Pulse Ox O2 Delivery O2 Flow Rate FiO2 07/08/21 08:30 97.6 52 20 161/81 94 Room Air EKG: EKG: Sinus rhythm, rate 50, leftward axis, no ST elevation or depression. [] Radiology/Procedures: Radiology/Procedures: [] Impressions: Exam performed: CT scan of the head and cervical spine without contrast. Date of Service:07/08/2021 Comparison: CT head and C-spine from May 11, 2021 . Clinical History: Fall Technique: Helical acquisitions are obtained from the foramen magnum to the vertex and through the cervical spine without IV contrast. Sagittal and coronal reformatted images are obtained and reviewed. CT head findings: Prominence of cortical sulci and ventricular system is noted consistent with age-related atrophy. There are areas of low-attenuation in both periventricular and subcortical deep white matter suggesting small vessel ischemic changes. Normal acuna-white differentiation is maintained. There is no extra axial fluid collection, intraparenchymal hemorrhage or mass lesion. The visualized portions of the orbits, paranasal sinuses and the mastoid air cells appear clear. The calvarium is intact. Impression: 1. No acute intracranial process detected. 2. Age-related atrophy and bilateral periventricular small vessel ischemic changes are noted. End impression CT cervical spine findings: Mild scoliosis of the cervical spine with leftward concavity is noted. Craniocervical and C1-2 articular relation appears preserved. The vertebral body heights are maintained. There is narrowing of several intervertebral disc spaces with diffuse osteophytic spurring. . There is no sabine or retr olisthesis. There is no perching of facets No prevertebral soft tissue swelling is identified. There are no fractures. No definite lymphadenopathy or masses are seen within the neck. The visualized thyroid and salivary glands appears preserved. 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 No acute abnormality seen in the CT scan cervical spine. RS Compliance Statement: One or more of the following individualized dose reduction techniques were utilized for this examination: 1. Automated exposure control 2. Adjustment of the mA and/or kV according to patient size 3. Use of iterative reconstruction technique Electronically signed by: Kala Rogers MD (07/08/2021 9:20 AM) [facility] DICTATED AND SIGNED BY: KALA ROGERS MD DATE: 07/08/21904 CC: ROSEANNE BAILEY DO; RADHAMES HARRINGTON ~MTH0 0 Heart Score: C/O Chest Pain: N/A Risk Factors: Risk Factors: DM, Current or recent (<one month) smoker, HTN, HLP, family history of CAD, obesity. Risk Scores: Score 0 - 3: 2.5% MACE over next 6 weeks - Discharge Home Score 4 - 6: 20.3% MACE over next 6 weeks - Admit for Clinical Observation Score 7 - 10: 72.7% MACE over next 6 weeks - Early Invasive Strategies Course & Med Decision Making: Course & Med Decision Making Pertinent Labs and Imaging studies reviewed. (See chart for details) The patient's EKG is unremarkable. His chest x-ray is negative for acute findings. His head and cervical spine CT are negative for acute findings. See official reads for more details. His labs are unremarkable. I repaired the patient's wound with sutures. See note below for more details. The patient is not on any blood thinners. The patient's urine is suggestive of UTI. I will treat him with Macrobid for 5 days as he has a normal creatinine. He is stable to return to his care facility at this time. [] Ruthy Disclaimer: Ruthy Disclaimer: This electronic medical record was generated, in whole or in part, using a voice recognition dictation system. Laceration Repair Lac Repair Indication: [] 2.5 cm stellate laceration of the forehead Procedure: I obtained verbal consent from the patient for suture repair of his forehead laceration. The wound was thoroughly irrigated with normal saline under pressure. No foreign bodies were found. I anesthetized the wound with 1% lidocaine with epinephrine. 2 cc were used. Once good anesthesia was achieved, I repaired the wound with 4-0 Ethilon suture in an interrupted fashion. There were 5 sutures total. There was reasonable skin approximation. Bleeding was controlled. A layer of bacitracin and nonadherent dressing were applied over the wound. Patient's tetanus was updated in the ER. Total repaired wound length: 2.5 cm. Other Items: None The patient tolerated the procedure well. Complications: Stellate laceration.. Departure Departure: Impression: Primary Impression: Fall Additional Impressions: Forehead laceration UTI (urinary tract infection) Qualified Codes: N30.01 - Acute cystitis with hematuria Disposition: HOME / SELF CARE / HOMELESS Condition: STABLE Referrals: RADHAMES HARRINGTON (PCP) Patient Instructions: Facial Laceration, Qjhn-ub-Rhir Scripts Nitrofurantoin Monohyd/M-Cryst (MACROBID 100 MG CAPSULE) 100 Mg Capsule 1 CAP PO BID for UTI for 5 Days, #10 CAP 0 Refills Prov: ROSEANNE BAILEY DO 07/08/21 ROSEANNE BAILEY DO Jul 08, 2021 09:02
[2021-07-08] MEDS ORDERED: LIDOCAINE 1%/EPI 1:100,000 20 ML VIAL. ONE (09:05)
[2021-07-08 09:15] LABS: BASO % 0 % (0-3); EOS # 0.2 x10^3/uL (0.0-0.7); EOS % 2 % (0-3); HEMATOCRIT 39.1 % (39.0-53.0); LYMPH # 1.1 x10^3/uL (1.0-4.8); LYMPH % 13 % (24-48); MEAN CORPUSCULAR HEMOGLOBIN 32 pg (25-35); MEAN CORPUSCULAR HGB CONC 33 g/dL (31-37); MEAN CORPUSCULAR VOLUME 96 fL (79-100); MONO # 0.6 x10^3/uL (0.0-1.1); MONO % 7 % (0-9); NEUT # 6.8 x10^3uL (1.8-7.7); NEUT % 78 % (31-73); PLATELET COUNT 194 x10^3/uL (140-400); RED BLOOD COUNT 4.08 x10^6/uL (4.30-5.70); RED CELL DISTRIBUTION WIDTH 13.5 % (11.5-14.5); WHITE BLOOD COUNT 8.7 x10^3/uL (4.0-11.0)
[2021-07-08] MEDS ORDERED: LIDOCAINE 1%/EPI 1:100,000 20 ML VIAL. INJ ONE (09:15)
--- NOTE | 2021-07-08 09:20 | EKG ---
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
--- NOTE | 2021-07-08 09:22 | RAD ---
Exam performed: CT scan of the head and cervical spine without contrast. Date of Service:07/08/2021 Comparison: CT head and C-spine from May 11, 2021 . Clinical History: Fall Technique: Helical acquisitions are obtained from the foramen magnum to the vertex and through the ce rvical spine without IV contrast. Sagittal and coronal reformatted images are obtained and reviewed . CT head findings: Prominence of cortical sulci and ventricular system is noted consistent with age-related atrophy. The re are areas of low-attenuation in both periventricular and subcortical deep white matter suggesting small vessel ischemic changes. Normal acuna-white differentiation is maintained. There is no extra ax ial fluid collection, intraparenchymal hemorrhage or mass lesion. The visualized portions of the orb its, paranasal sinuses and the mastoid air cells appear clear. The calvarium is intact. Impression: 1. No acute intracranial process detected. 2. Age-related atrophy and bilateral periventricular small vessel ischemic changes are noted. End impression CT cervical spine findings: Mild scoliosis of the cervical spine with leftward concavity is noted. Craniocervical and C1-2 articu lar relation appears preserved. The vertebral body heights are maintained. There is narrowing of anne ral intervertebral disc spaces with diffuse osteophytic spurring. . There is no sabine or retrolist hesis. There is no perching of facets No prevertebral soft tissue swelling is identified. There are n o fractures. No definite lymphadenopathy or masses are seen within the neck. The visualized thyroid and salivary glands appears preserved. 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 No acute abnormality seen in the CT scan cervical spine. PQRS Compliance Statement: One or more of the following individualized dose reduction techniques were utilized for this examinat ion: 1. Automated exposure control 2. Adjustment of the mA and/or kV according to patient size 3. Use of iterative reconstruction technique Electronically signed by: Kala Rogers MD (07/08/2021 9:20 AM) [facility]
[2021-07-08 09:23] LABS: CALCIUM 8.4 mg/dL (8.5-10.1); CREATININE 0.9 mg/dL (0.7-1.3); GFR 79.5
[2021-07-08 09:28] LABS: ALBUMIN 3.2 g/dL (3.4-5.0); ALBUMIN/GLOBULIN RATIO 1.2 (1.0-1.7); TOTAL BILIRUBIN 0.5 mg/dL (0.2-1.0); TOTAL PROTEIN 5.9 g/dL (6.4-8.2)
[2021-07-08] MEDS ORDERED: DIPH,PERTUSS(ACELL),TET VAC/PF 0.5 ML SYRINGE. VAX IM ONE (09:45)
[2021-07-08 10:40] LABS: BILIRUBIN,URINE NEG (NEG); CLARITY,URINE HAZY; COLOR,URINE AMBER; GLUCOSE,URINE NEG (NEG)
[2021-07-08 10:41] LABS: NITRITE,URINE NEG (NEG); UROBILINOGEN,URINE 0.2 mg/dL (0.2 mg/dL)
[2021-07-08 10:42] LABS: BACTERIA,URINE MANY /HPF (0-FEW); SQUAMOUS EPITHELIAL CELL,UR OCC /LPF
[2021-07-08] MEDS ORDERED: NITROFURANTOIN MONOHYD/M-CRYST 100 MG CAPSULE. PO ONE (10:45)
[2021-07-08] MEDS ORDERED: NITR100C62 PO (10:48)
[2021-07-08 11:02] VITALS: BP 168/85
== END 2021-07-08 11:30 | disposition home or self-care (01) ==
LOC: ER 08:18
DX: S01.81XA Laceration without foreign body of other part of head, initial encounter (principal); N30.01 Acute cystitis with hematuria; F41.9 Anxiety disorder, unspecified; M19.90 Unspecified osteoarthritis, unspecified site; F03.90 Unspecified dementia, unspecified severity, without behavioral disturbance, psychotic disturbance, mood disturbance, and anxiety; Z87.891 Personal history of nicotine dependence; Z88.0 Allergy status to penicillin; W18.09XA Striking against other object with subsequent fall, initial encounter; Y93.89 Activity, other specified; Y92.89 Other specified places as the place of occurrence of the external cause; Y99.8 Other external cause status
CPT/HCPCS: 12011; 36415; 70450; 71045; 72125; 80053; 81001; 84484; 85025; 87086; 90471; 90715; 93005; 99285-25

== ENCOUNTER 2021-08-25 12:29 | Emergency (ER) | payer OTHER, MEDICARE ==
[~2021-08-25] VITALS: Ht 177.8 cm; Wt 60.3 kg
[~2021-08-25 12:29] MED LIST changes: +NITR100C62 PO
[2021-08-25 12:30] VITALS: BP 146/83
--- NOTE | 2021-08-25 13:11 | PHYS DOC ---
Past History Past Medical History: Anxiety, Arthritis, Dementia Additional Past Medical Histor: BPH, insomnia, falls Past Surgical History: No Surgical History Smoking: Quit Greater Than 1 Year Alcohol Use: None Drug Use: None General Adult EDM: Chief Complaint: HEAD INJURY/TRAUMA HPI: HPI: Patient is an 89-year-old male who presents to the emergency department following a fall for a forehead laceration. Patient fell at 7:00 this morning. ER nurse states that patient was sliding out of his wheelchair when staff at the [facility] attempted to help him back into the wheelchair and he hit his head on the side of his wheelchair causing a laceration. Patient has a history of dementia and frequent falls. He does not take any blood thinners. Patient does not have any current complaints. He denies any pain. Tetanus is up-to-date. Review of Systems: Review of Systems: 14 body systems of the review of systems have been reviewed. See HPI for pertinent positive and negative responses, otherwise all other systems are negative, nonpertinent or noncontributory Allergies: Allergies: Allergies Coded Allergies Type Severity Reaction Last Updated Verified Penicillins Allergy Intermediate extremity swelling 04/25/14 Yes Physical Exam: PE: Constitutional: Well developed, well nourished, no acute distress, non-toxic appearance. [] HENT: Normocephalic, bilateral external ears normal, oropharynx moist, no oral exudates, nose normal, patient has an irregularly shaped skin tear approximately 4 cm x 1 cm noted to the right forehead [] Eyes: PERRLA, EOMI, conjunctiva normal, no discharge. [] Neck: Normal range of motion, no tenderness, supple, no stridor. [] Cardiovascular:Heart rate regular rhythm, no murmur [] Lungs & Thorax: Bilateral breath sounds clear to auscultation [] Abdomen: Bowel sounds normal, soft, no tenderness, no masses, no pulsatile masses. [] Skin: Warm, dry, no erythema, no rash. [] Back: No tenderness Extremities: No tenderness, no cyanosis, no clubbing, ROM intact, no edema. [] Neurologic: Alert and oriented X 3, normal motor function, normal sensory function, no focal deficits noted. [] Psychologic: Affect normal, judgement normal, mood normal. [] Current Patient Data: Vital Signs: Vital Signs Date Time Temp Pulse Resp B/P (MAP) Pulse Ox O2 Delivery O2 Flow Rate FiO2 08/25/21 12:30 98.1 56 18 146/83 (104) 97 EKG: EKG: [] Radiology/Procedures: Radiology/Procedures: []PROCEDURE: CT HEAD AND CERVICAL SPINE WO CT scan of the head without contrast 08/25/2021 Clinical History: Fall with head injury. Technique: Unenhanced, contiguous, 5 mm axial sections were obtained through the head. One or more of the following individualized dose reduction techniques were utilized for this study: 1. Automated exposure control. 2. Adjustment of the mA and/or kV according to patient size. 3. Use of iterative reconstruction technique. Findings: Comparison study is dated 07/08/2021. There is generalized parenchymal atrophy. Areas of decreased attenuation are seen within the periventricular and subcortical white matter of both cerebral hemispheres consistent with areas of small vessel ischemic disease. No acute parenchymal abnormality is seen. No extra-axial fluid collection is noted. No skull fracture is seen. Soft tissue swelling seen involving the right frontal scalp. Impression: No acute intracranial abnormality is seen. CT scan of the cervical spine without contrast 08/25/2021 Clinical history: Fall with neck injury. Technique: Unenhanced, contiguous, 0.625 mm axial sections were obtained through the cervical spine. 2.5 mm reconstructed axial and 2 mm coronal and sagittal reconstructed images were obtained. One or more of the following individualized dose reduction techniques were utilized for this study: 1. Automated exposure control. 2. Adjustment of the mA and/or kV according to patient size. 3. Use of iterative reconstruction technique. Findings: Sagittal and coronal reconstructed images demonstrate straightening of the normal cervical lordosis. Mild to moderate lateral curvature of the cervical spine is seen convex to the right. Degenerative changes consisting of varying degrees of disc space narrowing, vertebral endplate sclerosis and mild to moderate anterior and posterior vertebral body osteophyte formation are seen throughout the cervical disc spaces. No fracture or subluxation of the cervical vertebrae is seen. Degenerative changes are seen involving the uncovertebral and facet joints throughout the cervical disc spaces. Atherosclerotic calcification seen in the region of the carotid bifurcations. Impression: No fracture or subluxation of the cervical vertebra is identified. Electronically signed by: Ronaldo Hoskins MD (08/25/2021 1:24 PM) [id number] DICTATED AND SIGNED BY: RONALDO HOSKINS MD DATE: 08/25/21 [id number] CC: EMERGENCY,DEPARTMENT; RADHAMES HARRINGTON; GILBERTOJONAS L DATA PROCESSOR ~MTH0 0 Heart Score: C/O Chest Pain: N/A Risk Factors: Risk Factors: DM, Current or recent (<one month) smoker, HTN, HLP, family history of CAD, obesity. Risk Scores: Score 0 - 3: 2.5% MACE over next 6 weeks - Discharge Home Score 4 - 6: 20.3% MACE over next 6 weeks - Admit for Clinical Observation Score 7 - 10: 72.7% MACE over next 6 weeks - Early Invasive Strategies Course & Med Decision Making: Course & Med Decision Making Pertinent Labs and Imaging studies reviewed. (See chart for details) Patient presents to the emergency department for right sided forehead laceration. Patient's had a CT scan of his head neck performed which was negative for any acute findings. Skin tear does not require lacerations, laceration was repaired with skin glue and Steri-Strips were placed. There were no visible foreign bodies, patient tolerated procedure. Patient advised to take Tylenol or ibuprofen for his pain and follow-up with his primary care provider the physician that works at the [facility]. I discussed with patient all findings and diagnostic testing as well as the need to follow-up with PCP for further evaluation and treatment or return to the ER if any new or worsening symptoms. Strict return precautions were also discussed at length. Patient voiced understanding and agreement with the plan. Patient is hemodynamically stable at the time of disposition. Dragon Disclaimer: Dragon Disclaimer: This electronic medical record was generated, in whole or in part, using a voice recognition dictation system. Departure Departure: Impression: Primary Impression: Fall Qualified Codes: W19.XXXA - Unspecified fall, initial encounter Disposition: HOME / SELF CARE / HOMELESS Condition: GOOD Referrals: RADHAMES HARRINGTON (PCP) Patient Instructions: Fall Prevention and Home Safety, Laceration Care, Adult Additional Instructions: You are seen in the emergency department for a forehead laceration following a fall. The scan of your head and neck and it showed no acute findings. Your ski n tear was repaired with skin glue and Steri-Strips. Please avoid picking at this site. Please do not submerge her head under any water for 48 hours. Please monitor for signs of infection which include redness, warmth, swelling or drainage. You take Tylenol or ibuprofen for your pain at home. Follow-up with your primary care provider or the physician that you see at the penitentiary. If you develop any signs of infection, worsening of your head pain, confusion, another fall, weakness or any new or worsening concerns please return to the emergency department. EMERGENCY DEPARTMENT GENERAL DISCHARGE INSTRUCTIONS Thank you for coming to [facility] (ED) today and trusting us with you care. We trust that you had a positivie experience in our Emergency Department. If you wish to speak to the department management, you may call the director at [phone]. YOUR FOLLOW UP INSTRUCTIONS ARE FOLLOWS: 1. Do you have a private Doctor? If you do not have a private doctor, please ask for a resource list of physicians or clinics that may be able to assist you with follow up care. 2. The Emergency Physician has interpreted your x-rays. The X-Ray specialist will also review them. If there is a change in the findings, you will be notified in 48 hours when at all possible. 3. A lab test or culture has been done, your results will be reviewed and you will be notified if you need a change in treatment. ADDITIONAL INSTRUCTIONS AND INFORMATION: 1. Your care today has been supervised by a physician who is specially trained in emergency care. Many problems require more than one evaluation for a complete diagnosis and treatment. We recommend that you schedule your follow up appointment as recommended to ensure complete treatment of you illness or injury. If you are unable to obtain follow up care and continue to have a problem, or if your condition worsens, we recommend that you return to the ED. 2. We are not able to safely determine your condition over the phone nor are we able to give sound medical advice over the phone. For these safety reasons, if you call for medical advice we will ask you to come to the ED for further evaluation. 3. If you have any questions regarding these discharge instructions please call the ED at [phone]. SAFETY INFORMATION: In the interest of safety, wellness, and injury prevention; we encourage you to wear your sealbelt, if you smoke; quite smoking, and we encourage family to use a protective helmet for bicycling and other sporting events that present an increased risk for head injury. IF YOUR SYMPTOMS WORSEN OR NEW SYMPTOMS DEVELOP, OR YOU HAVE CONCERNS ABOUT YOUR CONDITION; OR IF YOUR CONDITION WORSENS WHILE YOU ARE WAITING FOR YOUR FOLLOW UP APPOINTMENT; EITHER CONTACT YOUR PRIMARY CARE DOCTOR, THE PHYSICIAN WHOSE NAME AND NUMBER YOU WERE GIVEN, OR RETURN TO THE ED IMMEDIATELY. JONAS MACIAS APRN Aug 25, 2021 13:11
--- NOTE | 2021-08-25 13:27 | RAD ---
CT scan of the head without contrast 08/25/2021 Clinical History: Fall with head injury. Technique: Unenhanced, contiguous, 5 mm axial sections were obtained through the head. One or more of the following individualized dose reduction techniques were utilized for this study: 1. Automated exposure control. 2. Adjustment of the mA and/or kV according to patient size. 3. Use of iterative reconstruction technique. Findings: Comparison study is dated 07/08/2021. There is generalized parenchymal atrophy. Areas of decreased attenuation are seen within the perivent ricular and subcortical white matter of both cerebral hemispheres consistent with areas of small vess el ischemic disease. No acute parenchymal abnormality is seen. No extra-axial fluid collection is not ed. No skull fracture is seen. Soft tissue swelling seen involving the right frontal scalp. Impression: No acute intracranial abnormality is seen. CT scan of the cervical spine without contrast 08/25/2021 Clinical history: Fall with neck injury. Technique: Unenhanced, contiguous, 0.625 mm axial sections were obtained through the cervical spine. 2.5 mm reconstructed axial and 2 mm coronal and sagittal reconstructed images were obtained. One or more of the following individualized dose reduction techniques were utilized for this study: 1. Automated exposure control. 2. Adjustment of the mA and/or kV according to patient size. 3. Use of iterative reconstruction technique. Findings: Sagittal and coronal reconstructed images demonstrate straightening of the normal cervical lordosis. Mild to moderate lateral curvature of the cervical spine is seen convex to the right. Degen erative changes consisting of varying degrees of disc space narrowing, vertebral endplate sclerosis a nd mild to moderate anterior and posterior vertebral body osteophyte formation are seen throughout th e cervical disc spaces. No fracture or subluxation of the cervical vertebrae is seen. Degenerative changes are seen involving the uncovertebral and facet joints throughout the cervical disc spaces. Atherosclerotic calcificatio n seen in the region of the carotid bifurcations. Impression: No fracture or subluxation of the cervical vertebra is identified. Electronically signed by: Ronaldo Hoskins MD (08/25/2021 1:24 PM) [id number]
== END 2021-08-25 14:15 | disposition home or self-care (01) ==
LOC: ER 12:29
DX: S01.81XA Laceration without foreign body of other part of head, initial encounter (principal); Z87.891 Personal history of nicotine dependence; W01.0XXA Fall on same level from slipping, tripping and stumbling without subsequent striking against object, initial encounter; Y93.89 Activity, other specified; Y92.89 Other specified places as the place of occurrence of the external cause; Y99.8 Other external cause status
CPT/HCPCS: 70450; 72125; 99285-25

== ENCOUNTER 2021-11-03 08:36 | Emergency (ER) | payer OTHER, MEDICARE ==
[~2021-11-03] VITALS: Ht 177.8 cm; Wt 61.3 kg
--- NOTE | 2021-11-03 08:54 | PHYS DOC ---
Past History Past Medical History: Anxiety, Arthritis, Dementia Additional Past Medical Histor: BPH, insomnia, falls Past Surgical History: No Surgical History Smoking: Quit Greater Than 1 Year Alcohol Use: None Drug Use: None General Adult EDM: Chief Complaint: MECHANICAL FALL HPI: HPI: 89-year-old male presents from the [facility] after a fall. The patient does not remember what happened today. He did not realize that he hit his head. He does not remember eating breakfast. Patient does have a history of Alzheimer's. There are no details immediately available surrounding the circumstances of his fall. Patient denies any pain at this time. He has no complaints. Review of Systems: Review of Systems: Constitutional: Denies fever or chills Eyes: Denies change in visual acuity HENT: Denies nasal congestion or sore throat Respiratory: Denies cough or shortness of breath Cardiovascular: Denies chest pain or edema GI: Denies abdominal pain, nausea, vomiting, bloody stools or diarrhea : Denies dysuria Musculoskeletal: Denies back pain or joint pain Integument: Abrasion forehead Neurologic: Denies headache, focal weakness or sensory changes Endocrine: Denies polyuria or polydipsia Lymphatic: Denies swollen glands Psychiatric: Denies depression or anxiety Allergies: Allergies: Allergies Coded Allergies Type Severity Reaction Last Updated Verified Penicillins Allergy Intermediate extremity swelling 04/25/14 Yes Physical Exam: PE: Constitutional: Well developed, well nourished, no acute distress, non-toxic appearance. [] HENT: Normocephalic, atraumatic, bilateral external ears normal, oropharynx moist, no oral exudates, nose normal. [] Eyes: PERRLA, EOMI, conjunctiva normal, no discharge. [] Neck: Normal range of motion, no tenderness, supple, no stridor. [] Cardiovascular: Heart rate regular rhythm, no murmur [] Lungs & Thorax: Bilateral breath sounds clear to auscultation [] Abdomen: Bowel sounds normal, soft, no tenderness, no masses, no pulsatile masses. [] Skin: Skin tear and hematoma right forehead. [] Back: No tenderness, no CVA tenderness. [] Extremities: No tenderness, no cyanosis, no clubbing, ROM intact, no edema. [] Neurologic: Alert and oriented to person and place, normal motor function, normal sensory function, no focal deficits noted. [] Psychologic: Affect normal, judgement normal, mood normal. [] EKG: EKG: Sinus rhythm, rate 48, leftward axis, no ST elevation or depression. [] Radiology/Procedures: Radiology/Procedures: [] Impressions: Chest AP portable at 0952: Reason for examination: Fell. Comparison is made to previous chest dated 07/08/2021. Heart size and mediastinum are unremarkable. Lung nuñez show no gross congestion, infiltrates or pleural effusions. There is no pneumothorax. No acute bony abnormalities are evident. IMPRESSION: No acute cardiopulmonary disease evident. Electronically signed by: Tessy Euceda MD (11/03/2021 10:41 AM) [facility] DI[facility]ATED AND SIGNED BY: TESSY EUCEDA MD DATE: 11/03/21 1040 CC: ROSEANNE BAILEY DO; RADHAMES HARRINGTON DE ~MTH0 0 EXAM: CT HEAD WITHOUT IV CONTRAST CLINICAL HISTORY: Fall COMPARISON: 08/25/2021 TECHNIQUE: Routine CT of the head without contrast. Soft tissues and bone windows were reviewed. PQRS compliance statement - One or more of the following individualized dose reduction techniques were utilized for this study: 1. Automated exposure control 2. Adjustment of the mA and/or kV according to patient size 3. Use of iterative reconstruction technique FINDINGS: Patient's hand is on the forehead, resulting in associated beam hardening artifact and limitations. There is no evidence of hemorrhage, mass or extra-axial fluid collection. Pearl-white differentiation is maintained with no evidence of edema. Subcortical, periventricular as well as deep white matter foci of hypoattenuation likely changes of chronic small vessel disease. There is no mass effect or shift of the intracranial structures. The ventricles and cerebral sulci are prominent for the patients stated age consistent with generalized cerebral volume loss. The cerebellum and brainstem are unremarkable. The calvarium demonstrates no evidence of fracture or focal lesion. There is normal aeration of the visualized paranasal sinuses and mastoid air cells. The visualized portions of the orbits are normal. Scalp hematoma right frontal region. IMPRESSION: 1. No evidence for acute intracranial process. 2. White matter changes likely chronic small vessel disease. 3. The ventricles and cerebral sulci are prominent for the patients stated age consistent with generalized cerebral volume loss. EXAM: CT CERVICAL SPINE WITHOUT IV CONTRAST CLINICAL HISTORY: Reason: fall / Spl. Instructions: / History: COMPARISON: 08/25/2021 TECHNIQUE: Helical CT of the cervical spine was performed. Axial, coronal and sagittal reformatted images were also performed. PQRS compliance statement - One or more of the following individualized dose reduction techniques were utilized for this study: 1. Automated exposure control 2. Adjustment of the mA and/or kV according to patient size 3. Use of iterative reconstruction technique FINDINGS: Vertebral body heights are preserved. Severe C3-4, moderate 2 severe C4-5, C5-6 and C6-7 disc height loss. Mild C7-T1 disc height loss. Posterior disc osteophyte complexes are seen at these levels, most prominent at C3-4 and C5-6 resulting in moderate central canal stenosis greatest at C3-4. Facet degen erative changes are seen. Rightward curvature of the cervical spine. IMPRESSION: 1. Multilevel spondylosis as above 2. Negative acute fracture or subluxation. Electronically signed by: Reggie Benson MD (11/03/2021 9:52 AM) [facility] DICTATED AND SIGNED BY: REGGIE BENSON MD DATE: 11/03/21 0948 CC: ROSEANNE BAILEY DO; RADHAMES HARRINGTON PA ~MTH0 0 Heart Score: C/O Chest Pain: N/A Risk Factors: Risk Factors: DM, Current or recent (<one month) smoker, HTN, HLP, family history of CAD, obesity. Risk Scores: Score 0 - 3: 2.5% MACE over next 6 weeks - Discharge Home Score 4 - 6: 20.3% MACE over next 6 weeks - Admit for Clinical Observation Score 7 - 10: 72.7% MACE over next 6 weeks - Early Invasive Strategies Course & Med Decision Making: Course & Med Decision Making Pertinent Labs and Imaging studies reviewed. (See chart for details) The patient's labs are unremarkable. The patient's CT of the head and cervical spine is negative for acute process. Chest x-ray is negative for acute findings. Patient's abrasion has been cleaned up and dressed. He is stable for discharge to return to the care facility at this time. [] Dragon Disclaimer: Dragon Disclaimer: This electronic medical record was generated, in whole or in part, using a voice recognition dictation system. Departure Departure: Impression: Primary Impression: Fall Additional Impression: Abrasion of forehead Disposition: 03 RETIREMENT FACILITY Condition: STABLE Referrals: RADHAMES HARRINGTON (PCP) Patient Instructions: Silvano [id number] ROSEANNE BAILEY DO Nov 03, 2021 08:54
[2021-11-03 09:54] LABS: BASO # 0.1 x10^3/uL (0.0-0.2); BASO % 1 % (0-3); EOS # 0.2 x10^3/uL (0.0-0.7); EOS % 3 % (0-3); HEMOGLOBIN 12.9 g/dL (13.0-17.5); LYMPH # 1.2 x10^3/uL (1.0-4.8); LYMPH % 14 % (24-48); MEAN CORPUSCULAR HEMOGLOBIN 32 pg (25-35); MEAN CORPUSCULAR HGB CONC 33 g/dL (31-37); MEAN CORPUSCULAR VOLUME 97 fL (79-100); MONO # 0.6 x10^3/uL (0.0-1.1); MONO % 7 % (0-9); NEUT # 6.4 x10^3uL (1.8-7.7); NEUT % 75 % (31-73); PLATELET COUNT 199 x10^3/uL (140-400); RED BLOOD COUNT 4.01 x10^6/uL (4.30-5.70); RED CELL DISTRIBUTION WIDTH 13.3 % (11.5-14.5); WHITE BLOOD COUNT 8.5 x10^3/uL (4.0-11.0)
--- NOTE | 2021-11-03 09:55 | RAD ---
EXAM: CT HEAD WITHOUT IV CONTRAST CLINICAL HISTORY: Fall COMPARISON: 08/25/2021 TECHNIQUE: Routine CT of the head without contrast. Soft tissues and bone windows were reviewed. PQRS compliance statement - One or more of the following individualized dose reduction techniques wer e utilized for this study: 1. Automated exposure control 2. Adjustment of the mA and/or kV according to patient size 3. Use of iterative reconstruction technique FINDINGS: Patient's hand is on the forehead, resulting in associated beam hardening artifact and limitations. There is no evidence of hemorrhage, mass or extra-axial fluid collection. Pearl-white differentiation is maintained with no evidence of edema. Subcortical, periventricular as w ell as deep white matter foci of hypoattenuation likely changes of chronic small vessel disease. There is no mass effect or shift of the intracranial structures. The ventricles and cerebral sulci are prominent for the patients stated age consistent with generaliz ed cerebral volume loss. The cerebellum and brainstem are unremarkable. The calvarium demonstrates no evidence of fracture or focal lesion. There is normal aeration of the visualized paranasal sinuses and mastoid air cells. The visualized portions of the orbits are normal. Scalp hematoma right frontal region. IMPRESSION: 1. No evidence for acute intracranial process. 2. White matter changes likely chronic small vessel disease. 3. The ventricles and cerebral sulci are prominent for the patients stated age consistent with gener alized cerebral volume loss. EXAM: CT CERVICAL SPINE WITHOUT IV CONTRAST CLINICAL HISTORY: Reason: fall / Spl. Instructions: / History: COMPARISON: 08/25/2021 TECHNIQUE: Helical CT of the cervical spine was performed. Axial, coronal and sagittal reformatted im ages were also performed. PQRS compliance statement - One or more of the following individualized dose reduction techniques wer e utilized for this study: 1. Automated exposure control 2. Adjustment of the mA and/or kV according to patient size 3. Use of iterative reconstruction technique FINDINGS: Vertebral body heights are preserved. Severe C3-4, moderate 2 severe C4-5, C5-6 and C6-7 disc height loss. Mild C7-T1 disc height loss. Posterior disc osteophyte complexes are seen at these levels, most prominent at C3-4 and C5-6 resulting in moderate central canal stenosis greatest at C3-4. Facet dege nerative changes are seen. Rightward curvature of the cervical spine. IMPRESSION: 1. Multilevel spondylosis as above 2. Negative acute fracture or subluxation. Electronically signed by: Reggie Elizondo MD (11/03/2021 9:52 AM) [facility]
[2021-11-03 10:03] LABS: CALCIUM 8.4 mg/dL (8.5-10.1); CREATININE 0.9 mg/dL (0.7-1.3); GFR 79.5; POTASSIUM 4.4 mmol/L (3.5-5.1)
[2021-11-03 10:07] LABS: ALBUMIN 3.2 g/dL (3.4-5.0); ALBUMIN/GLOBULIN RATIO 1.3 (1.0-1.7); TOTAL BILIRUBIN 0.5 mg/dL (0.2-1.0); TOTAL PROTEIN 5.6 g/dL (6.4-8.2)
--- NOTE | 2021-11-03 10:44 | RAD ---
Chest AP portable at 0952: Reason for examination: Fell. Comparison is made to previous chest dated 07/08/2021. Heart size and mediastinum are unremarkable. Lung nuñez show no gross congestion, infiltrates or ple ural effusions. There is no pneumothorax. No acute bony abnormalities are evident. IMPRESSION: No acute cardiopulmonary disease evident. Electronically signed by: Tessy Loera MD (11/03/2021 10:41 AM) [facility]
[2021-11-03 10:49] VITALS: BP 154/80
--- NOTE | 2021-11-03 13:27 | EKG ---
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
== END 2021-11-03 11:18 ==
LOC: ER 08:36
DX: S00.83XA Contusion of other part of head, initial encounter (principal); F41.9 Anxiety disorder, unspecified; M19.90 Unspecified osteoarthritis, unspecified site; G30.9 Alzheimer's disease, unspecified; F02.80 Dementia in other diseases classified elsewhere, unspecified severity, without behavioral disturbance, psychotic disturbance, mood disturbance, and anxiety; Z87.891 Personal history of nicotine dependence; Z88.0 Allergy status to penicillin; W18.39XA Other fall on same level, initial encounter; Y93.89 Activity, other specified; Y92.89 Other specified places as the place of occurrence of the external cause; Y99.8 Other external cause status
CPT/HCPCS: 36415; 70450; 71045; 72125; 80053; 84484; 85025; 93005; 99285

== ENCOUNTER → 2022-02-10 | Emergency (ER) | payer MEDICARE ==
[~2022-02-10] VITALS: Ht 177.8 cm; Wt 61.3 kg
[2022-02-10 16:08] VITALS: BP 152/81
--- NOTE | 2022-02-10 16:17 | PHYS DOC ---
Past History Past Medical History: Anxiety, Arthritis, Dementia Additional Past Medical Histor: BPH, insomnia, falls, alzheimers, aphasia Past Surgical History: Other Additional Past Surgical Histo: unknown Smoking: Quit Greater Than 1 Year Alcohol Use: None Drug Use: None General Adult EDM: Chief Complaint: MECHANICAL FALL HPI: HPI: 89-year-old male presents [facility] fall at the [facility] living. The patient was standing and then just started to fall over. This was witnessed by the staff. The patient states he believes he tripped over something but he does not exactly remember. He does believe that he lost consciousness for a short amount of inderjit e. He has a laceration on the left side of his forehead. He denies any other areas of pain, nausea, vomiting. Review of Systems: Review of Systems: Constitutional: Denies fever or chills Eyes: Denies change in visual acuity HENT: Denies nasal congestion or sore throat Respiratory: Denies cough or shortness of breath Cardiovascular: Denies chest pain or edema GI: Denies abdominal pain, nausea, vomiting, bloody stools or diarrhea : Denies dysuria Musculoskeletal: Denies back pain or joint pain Integument: Laceration forehead Neurologic: Syncope. Denies headache, focal weakness or sensory changes Endocrine: Denies polyuria or polydipsia Lymphatic: Denies swollen glands Psychiatric: Denies depression or anxiety Allergies: Allergies: Allergies Coded Allergies Type Severity Reaction Last Updated Verified Penicillins Allergy Intermediate extremity swelling 04/25/14 Yes Physical Exam: PE: Constitutional: Well developed, well nourished, no acute distress, non-toxic appearance. [] HENT: Normocephalic, atraumatic, bilateral external ears normal, oropharynx moist, no oral exudates, nose normal. [] Eyes: PERRLA, EOMI, conjunctiva normal, no discharge. [] Neck: Normal range of motion, no tenderness, supple, no stridor. [] Cardiovascular:Heart rate regular rhythm, no murmur [] Lungs & Thorax: Bilateral breath sounds clear to auscultation [] Abdomen: Bowel sounds normal, soft, no tenderness, no masses, no pulsatile masses. [] Skin: Warm, dry, no erythema, no rash. [] Back: No tenderness, no CVA tenderness. [] Extremities: No tenderness, no cyanosis, no clubbing, ROM intact, no edema. [] Neurologic: Alert and oriented X 3, normal motor function, normal sensory function, no focal deficits noted. [] Psychologic: Affect normal, judgement normal, mood normal. [] EKG: EKG: Sinus rhythm 59, leftward axis, no ST elevation or depression. [] Radiology/Procedures: Radiology/Procedures: [] Impressions: Exam: CT head INDICATION: Fall, loss of consciousness, laceration TECHNIQUE: Sequential axial images through the head were obtained without the administration of IV contrast. Exposure: One or more of the following in the visualized dose reduction techniques were utilized for this examination: 1. Automated exposure control 2. Adjustment of the MA and/or KV according to patient size 3. Use of iterative of reconstructive technique Comparisons: 11/03/2021 FINDINGS: No focal parenchymal lesion or hemorrhage is identified. There is no midline shift or sulcal effacement. Moderate patchy hypodensity in the periventricular white matter. No acute vascular territory infarction is identified. Carrillo-white distinction is preserved. The ventricular system is within normal limits without compression hydrocephalus. The basal cisterns are well maintained. The visualized portions of the paranasal sinuses and mastoid air cells are well- pneumatized. No acute fractures. IMPRESSION: No acute intracranial abnormality. Electronically signed by: Jason Up MD (02/10/2022 4:47 PM) [facility] DICTATED AND SIGNED BY: JASON UP MD DATE: 02/10/221641 CC: ROSEANNE BAILEY DO; RADHAMES HARRINGTON ~ XR CHEST 1V CLINICAL INDICATIONS: Reason: syncope COMPARISON: November 03, 2021 Findings: No acute lung infiltrate or pleural effusion or pulmonary edema or lung mass or pneumothorax is seen. The heart size, pulmonary vasculature, mediastinum and both heide are stable. IMPRESSION: No acute radiographic abnormality is seen. Electronically signed by: Salvador Reynolds MD (02/10/2022 4:51 PM) [id number] DICTATED AND SIGNED BY: SALVADOR REYNOLDS MD DATE: 02/10/221649 CC: ROSEANNE BAILEY DO; RADHAMES HARRINGTON ~ Heart Score: C/O Chest Pain: N/A Risk Factors: Risk Factors: DM, Current or recent (<one month) smoker, HTN, HLP, family history of CAD, obesity. Risk Scores: Score 0 - 3: 2.5% MACE over next 6 weeks - Discharge Home Score 4 - 6: 20.3% MACE over next 6 weeks - Admit for Clinical Observation Score 7 - 10: 72.7% MACE over next 6 weeks - Early Invasive Strategies Course & Med Decision Making: Course & Med Decision Making Pertinent Labs and Imaging studies reviewed. (See chart for details) The patient's head CT is negative for acute findings. His chest x-ray is negative for acute findings. I have repaired his forehead laceration with sutures. See note below for details. The patient is stable for discharge at this time. [] Dragon Disclaimer: Dragon Disclaimer: This electronic medical record was generated, in whole or in part, using a voice recognition dictation system. Laceration Repair Lac Repair Indication: [] 2 cm laceration of the forehead. Procedure: I obtained verbal consent from the patient for suture repair of his forehead laceration. The wound was thoroughly irrigated with normal saline. No foreign bodies were found. I anesthetized the wound with 1% lidocaine without epinephrine. 2 cc were used. After good anesthesia was achieved I placed 4 interrupted sutures. 4-0 Ethilon was used. The skin was reasonably approximated. A clean dry dressing was applied. Total repaired wound length: 2 cm. Other Items: None The patient tolerated the procedure well. Complications: Ragged edge on one end preventing full closure. Departure Departure: Impression: Primary Impression: Fall Additional Impression: Laceration of forehead Disposition: HOME / SELF CARE / HOMELESS Condition: IMPROVED Referrals: RADHAMES HARRINGTON (PCP) Patient Instructions: Laceration Care, Adult, [id number] ROSEANNE BAILEY DO Feb 10, 2022 16:17
--- NOTE | 2022-02-10 16:33 | EKG ---
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
--- NOTE | 2022-02-10 16:50 | RAD ---
Exam: CT head INDICATION: Fall, loss of consciousness, laceration TECHNIQUE: Sequential axial images through the head were obtained without the administration of IV co ntrast. Exposure: One or more of the following in the visualized dose reduction techniques were utilized for this examination: 1. Automated exposure control 2. Adjustment of the MA and/or KV according to patient size 3. Use of iterative of reconstructive technique Comparisons: 11/03/2021 FINDINGS: No focal parenchymal lesion or hemorrhage is identified. There is no midline shift or sulcal effaceme nt. Moderate patchy hypodensity in the periventricular white matter. No acute vascular territory infarcti on is identified. Carrillo-white distinction is preserved. The ventricular system is within normal limits without compression hydrocephalus. The basal cisterns are well maintained. The visualized portions of the paranasal sinuses and mastoid air cells are well-pneumatized. No acute fractures. IMPRESSION: No acute intracranial abnormality. Electronically signed by: Jason Quevedo MD (02/10/2022 4:47 PM) [facility]
--- NOTE | 2022-02-10 16:53 | RAD ---
XR CHEST 1V CLINICAL INDICATIONS: Reason: syncope COMPARISON: November 03, 2021 Findings: No acute lung infiltrate or pleural effusion or pulmonary edema or lung mass or pneumothora x is seen. The heart size, pulmonary vasculature, mediastinum and both heide are stable. IMPRESSION: No acute radiographic abnormality is seen. Electronically signed by: Sylvester Reynolds MD (02/10/2022 4:51 PM) [id number]
[2022-02-10 17:16] LABS: BASO # 0.1 x10^3/uL (0.0-0.2); BASO % 1 % (0-3); EOS # 0.2 x10^3/uL (0.0-0.7); EOS % 3 % (0-3); HEMATOCRIT 41.5 % (39.0-53.0); HEMOGLOBIN 13.6 g/dL (13.0-17.5); LYMPH # 1.2 x10^3/uL (1.0-4.8); LYMPH % 16 % (24-48); MEAN CORPUSCULAR HEMOGLOBIN 32 pg (25-35); MEAN CORPUSCULAR HGB CONC 33 g/dL (31-37); MEAN CORPUSCULAR VOLUME 96 fL (79-100); MONO # 0.6 x10^3/uL (0.0-1.1); MONO % 8 % (0-9); NEUT # 5.1 x10^3uL (1.8-7.7); NEUT % 72 % (31-73); PLATELET COUNT 187 x10^3/uL (140-400); RED BLOOD COUNT 4.31 x10^6/uL (4.30-5.70); RED CELL DISTRIBUTION WIDTH 13.6 % (11.5-14.5); WHITE BLOOD COUNT 7.2 x10^3/uL (4.0-11.0)
[2022-02-10 17:29] LABS: CALCIUM 8.5 mg/dL (8.5-10.1); GFR 70.4; POTASSIUM 3.9 mmol/L (3.5-5.1)
[2022-02-10 17:32] LABS: ALBUMIN 3.2 g/dL (3.4-5.0); ALBUMIN/GLOBULIN RATIO 1.3 (1.0-1.7); TOTAL BILIRUBIN 0.3 mg/dL (0.2-1.0); TOTAL PROTEIN 5.7 g/dL (6.4-8.2)
== END | disposition home or self-care (01) ==
LOC: ER 16:05
DX: S01.81XA Laceration without foreign body of other part of head, initial encounter (principal); M19.90 Unspecified osteoarthritis, unspecified site; F03.90 Unspecified dementia, unspecified severity, without behavioral disturbance, psychotic disturbance, mood disturbance, and anxiety; F41.9 Anxiety disorder, unspecified; Z87.891 Personal history of nicotine dependence; Z88.0 Allergy status to penicillin; W18.09XA Striking against other object with subsequent fall, initial encounter; Y93.89 Activity, other specified; Y92.128 Other place in nursing home as the place of occurrence of the external cause; Y99.8 Other external cause status
CPT/HCPCS: 12011; 36415; 70450; 71045; 80053; 84484; 85025; 93005; 99285